=== PATIENT | female | born 1965 | race Two or more races ===

== ENCOUNTER 2025-01-22 12:34 | Outpatient (OUT) | payer OTHER, SELFPAY ==
--- OUTSIDE RECORDS SUMMARY | 2020-03-25 09:30 | XMS_ITS | Continuity of Care Document ---
Author Organization [facility] Address [address] [facility] [place] [address] Phone Care Team Providers Care Furniture Assembler And Installer Name Role Phone Chu Rodriguez Unavailable Unavailable Procedures Procedure Date Covid Testing [facility] Results Test Name Date and Time Measure Units Reference Range Abnormal Flag Status Comments Panel Description: SARS-CoV-2, DAVI Final SARS-CoV-2, DAVI 06:55:00 Not Detected Not Detected Final This test was developed and its performance characteristics determinedby [facility]. This test has not been FDA cleared orapproved. This test has been authorized by FDA under an Emergency UseAuthorization (EUA). This test is only authorized for the duration oftime the declaration that circumstances exist justifying theauthorization of the emergency use of in vitro diagnostic tests fordetection of SARS-CoV-2 virus and/or diagnosis of COVID-19 infectionunder section 564(b)(1) of the Act, 21 U.S.C. 360bbb-3(b)(1), unlessthe authorization is terminated or revoked sooner.When diagnostic testing is negative, the possibility of a falsenegative result should be considered in the context of a patient'srecent exposures and the presence of clinical signs and symptomsconsistent with COVID-19. An individual without symptoms of COVID-19and who is not shedding SARS-CoV-2 virus would expect to have anegative (not detected) result in this assay.Performed by:[facility] ([facility] Panel Description: SARS-CoV-2 Antibody, IgM [facility] SARS-CoV-2 Antibody, IgM Aug-06-2 020 07:19:00 Negative Negative Final This sample do es not contain detectable SARS-CoV-2 IgM antibodies.This negative result does not rule out SARS-CoV-2 infection.Correlatio n with epidemiologic risk factors and other clinical andlaboratory findings is recommended. Serologic results should not beused as the sole basis to diagnose or exclude recent [id number]. Performed by:[email or web address] ([facility]) Panel Description: SARS-CoV-2 Antibody, IgG [facility] SARS-CoV-2 Antibody, IgG 020 04:31:00 Comment Negative Final See [facility] SARS-CoV-2 Ab, IgGPerformed by:[email or web address] ([facility]) Panel Description: [facility] SARS-CoV-2 Ab, IgG Final [facility] SARS-CoV-2 Ab, IgG 020 06:03:00 Negative Negative Final This sample do es not contain detectable SARS-CoV-2 IgG antibodies.This negative result does not rule out SARS-CoV-2 infection.Correlatio n with epidemiologic risk factors and other clinical andlaboratory findings is recommended. Serologic results should not beused as the sole basis to diagnose or exclude recent [id number]. This assay was performed using the [facility](R)SARS-CoV-2 S1/S2 IgG assay.Performed by:[facility] ([facility]) Advance Directives Directive Yes / No Effective Date File Name No Information Encounters Encounter Description Practice Location Reason(s) For Visit Diagnoses Date Provider Providers Copied on Encounter [facility], [address], [place], [id number], [place] tel:[phone] COVID [facility] Encounter for screening for other viral disease Visci DO Chu. [address], [place], [id number], [place]. tel:[phone] Family History Family Member Type Diagnosis Age At Onset No Information Payers Payer name Insurance type Covered republican ID Authoriza tiveronica(s) Medical [facility] [id number] Social History Type Description Quantity Date Captured Comments Alcohol Use Details Unknown Caffeine Use Details Unknown Tobacco Use Status No Information Smoking Status No Information Sex Female Sexual Orientation Straight or heterosexual Gender Identity Female Chief Complaint And Reason For Visit No Information Reason For Referral Reason For Referral No Information History Of Present Illness Encounter Date Complaint History Of Prese nt Illness No Information Functional Status Date Functional Assessmen t No Information Instructions Date Instruction Additional Infor mation No Information Assessments Type Assessment Date assessment Encounter for screening for othe r viral disease Patient Care Teams Name Effective Dates (start - stop) Status Members No Information
--- OUTSIDE RECORDS SUMMARY | 2024-12-18 10:45 | XMS_ITS ---
Author Organization [facility] in [place] Address [address] [place] [address] Care Team Providers Care Marketing Data Specialist Name Role Phone Linus Jeffries DO Primary Care Provider Sam Del Toro Unavailable [phone] Allergies Allergen (clinical drug ingredient) Drug/Non Drug Allergy documented on EMR Reaction Allergy Type Onset Date Status Bee Sting (uncoded) Swelling Allergy Active meperidine Demerol nausea and vomiting Drug Allergy Active Substance with sulfonamide structure and antibacterial mechanism of action (substance) Sulfa Antibiotics rash Drug Allergy Active REASON FOR VISIT Cough/ Self Referred Medications Medication SIG (Take, Route, Frequency, Duration) Notes Start Date End Date Status Fexofenadine HCl 180 MG 1 tablet Swallow whole with water; do not take with fruit juices. Orally Once a day for 30 day(s) 12/18/2024 Active Fluticasone Propionate 50 MCG/ACT 1 spray in each nostril Nasally Twice a day Active Ibuprofen 800 MG Oral for 20 Days Active Propranolol HCl ER 60 MG Take 1 capsule (60 mg) by mouth Daily Oral for 90 Days Active Esomeprazole Magnesium 20 MG 1 capsule 1/2 to 1 hour before morning meal Orally Once a day Active Almotriptan Malate 6.25 MG 1 tablet as n eeded, may take second dose at least 2 hours after first dose up to 2 tablets per day as needed Orally Once a day Active Atorvastatin Calcium 20 MG TAKE 1 TABLET BY MOUTH ONCE DAILY Oral for 30 Days Active Social History Tobacco Use: Social History Observation Description Date Details (start date - stop date) Never Smoker NA - NA Tobacco Control (Standard) Question Answer Notes Tobacco use: Nonsmoker Problems Problem Type SNOMED Code ICD Code Onset Dates Problem Status W/U Status Risk Notes Problem migraine (disorder) (61192956) Migraines (G43.909) Active confirmed Problem HLD (hyperlipidemi a) (E78.5) Active confirmed Vital Signs Weight 226.4 lbs 12/18/2024 Height 62 in 12/18/2024 Blood pressure systolic 140 mm Hg 12/19/19 25 Blood pressure diastolic 87 mm Hg 025 Temperature 97.0 degrees Fahrenheit 12/19/19 25 Heart Rate 73 /min 12/18/2024 Respiratory Rate 18 /min 12/18/2024 BMI 41.4 kg/m2 12/18/2024 Oximetry 98 % 12/18/2024 Procedures Procedure Date Ordered Date Performed Result Body Sit e Spirometry (Pre Only) - Performed 12/18/2024 N/ A Echocardiogram 2D M Mode w/ Doppler (measure RVSP) 12/18/2024 N/A PFT (83158, 35626, 19808) 12/18/2024 N/A Encounters Encounter Location Date Provider Diagnosis [facility] [place] [address] [place] [address] 12/18/2024 Sam Parks Shortness of breath R06.02 ; Chronic cough R05.3 ; Abnormal breath sounds R06.89 ; Lower extremity edema R60.0 and Morbid obesity E66.01 Assessments Encounter Date Diagnosis (ICD Code) Assessment Notes Treatment Notes Treatment Clinical Notes Section Notes 12/18/2024 Shortness of breath (ICD-10 - R06.02) Dyspnea and coughing, manifesting after presumptive COVID-09 July 2024, worsened after hai a second respiratory illness August 2024. No improvement despite saline rinse + Annalee and Nexium. She has also experienced unexplained weight gain and now BLE pitting edema. There are abnormal breath sounds with expiratory wheezing and bibasilar inspiratory crackles, R > L. 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 Office spirometry was performed today, which I reviewed with the patient. It is a mild restrictive pattern with FEV1/FVC 82.6% with FVC 74%. Suspect restriction is secondary in part to weight, but with crackles, I cannot R/O interstitial lung disease, and in addition BLE edema, CHF. Explained that a restrictive lung disease can obscure underlying obstructive lung disease, so it is possible she could have asthma. I made the following recommendations: -Full PFT is necessary to confirm if there is truly restrictive lung disease (need TLC). This can also check for any diffusion impairment and bronchoreversibili ty. -HRCT to evaluate for ILD. There are bibasilar crackles on examination, R > L. This is not normal and can be seen in pulmonary fibrosis or CHF. There is no CXR done, but regardless of the CXR results, I am still going to order a HRCT based on the abnormal breath sounds and ongoing cough of >5 months. -Echocardiogram to evaluate for any cardiac cause for dyspnea, BLE edema, and abnormal breath sounds. Pulmonary edema/effusion could explain the bibasilar crackles, and bronchial edema from CHF can cause wheezes, mimicking obstructive lung disease. -Breztri samples to see if there is any subjective benefit. Cannot R/O obstructive lung disease based on the restrictive pattern on spirometry. She was instructed to use it 2 puffs BID and rinse after use. If she develops adverse effects, she can titrate the dosing according to symptom control. F/U 4 weeks to evaluate response to Breztri and review PFT, echocardiogram, and HRCT. 12/18/2024 Chronic cough (ICD-10 - R05.3) Differential as above: ? ILD/pulmonary fibrosis vs. CHF or cardiomyopathy associated with COVID-19? 12/18/2024 Abnormal breath sounds (ICD-10 - R06.89) Bibasilar inspiratory crackles, R > L; expiratory wheezes. 12/18/2024 Lower extremity edema (ICD-10 - R60.0) Worsening over past several months. Associated with dyspnea/coughing? 12/18/2024 Morbid obesity (ICD-10 - E66.01) Patient has unexplained weight gain. Cannot R/O fluid retention secondary to cardiac disease. Obesity is contributing to restrictive pattern on spirometry. She is trying to lose weight but finds it quite difficult at this time. Plan Of Treatment Treatment Notes Assessment Notes Shortness of breath Dyspnea and coughing, manifesting after presumptive COVID-09 July 2024, worsened after hai a second respiratory illness August 2024. No improvement despite saline rinse + Annalee and Nexium. She has also experienced unexplained weight gain and now BLE pitting edema. There are abnormal breath sounds with expiratory wheezing and bibasilar inspiratory crackles, R > L. 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 Office spirometry was performed today, which I reviewed with the patient. It is a mild restrictive pattern with FEV1/FVC 82.6% with FVC 74%. Suspect restriction is secondary in part to weight, but with crackles, I cannot R/O interstitial lung disease, and in addition BLE edema, CHF. Explained that a restrictive lung disease can obscure underlying obstructive lung disease, so it is possible she could have asthma. I made the following recommendations: -Full PFT is necessary to confirm if there is truly restrictive lung disease (need TLC). This can also check for any diffusion impairment and bronchoreversibility. -HRCT to evaluate for ILD. There are bibasilar crackles on examination, R > L. This is not normal and can be seen in pulmonary fibrosis or CHF. There is no CXR done, but regardless of the CXR results, I am still going to order a HRCT based on the abnormal breath sounds and ongoing cough of >5 months. -Echocardiogram to evaluate for any cardiac cause for dyspnea, BLE edema, and abnormal breath sounds. Pulmonary edema/effusion could explain the bibasilar crackles, and bronchial edema from CHF can cause wheezes, mimicking obstructive lung disease. -Breztri samples to see if there is any subjective benefit. Cannot R/O obstructive lung disease based on the restrictive pattern on spirometry. She was instructed to use it 2 puffs BID and rinse after use. If she develops adverse effects, she can titrate the dosing according to symptom control. F/U 4 weeks to evaluate response to Breztri and review PFT, echocardiogram, and HRCT. Chronic cough Differential as above: ? ILD/pulmonary fibrosis vs. CHF or cardiomyopathy associated with COVID-19? Abnormal breath sounds Bibasilar inspiratory crackles, R > L; expiratory wheezes. Lower extremity edema Worsening over past several months. Associated with dyspnea/coughing? Morbid obesity Patient has unexplained weight gain. Cannot R/O fluid retention secondary to cardiac disease. Obesity is contributing to restrictive pattern on spirometry. She is trying to lose weight but finds it quite difficult at this time. Pending Test Test Name Order Date Spirometry (Pre Only) - Performed 2024 Echocardiogram 2D M Mode w/ Doppler (manuela sure RVSP) 12/18/2024 CT Chest High Resolution 12/18/2024 PFT (24288, 23155, 83046) 12/18/2024 Next Appt Details Follow Up: 4 Weeks, Reason: Cough, SOB - testing Provider Name:Sam Parks, 01/29/2025 03:40:00 PM, [address] [place], [address], Progress Notes * Margie ALTMAN LDOB:1965 (59 yo F)Acc No.[id number]:12/18/2024 New Patient Patient: Margie RIGGS Provider: Niki Parks DO :1965 A ge:59 Y S ex:Female Date:12/18/2024 Address:[address] [place] [address] , [facility] Pcp:Linus Jeffries, DO Check In:02:30 PM ESTCheck O ut:03:20 PM EST Subjective: * Chief Complaints: * C ough/ Self Referred * HPI: G eneral: NEW PATIENT 59yo female, whom I know outside the office, presents with a chronic cough and dyspnea. She has no know history of asthma, lifelong non-smoker. Symptoms began June 2024 after hai presumptive COVID-19. She was beginning to improve, but then contracted another respiratory infection August 2024, from which she has never recovered. Coughing can occur throughout the day and it is occasionally productive without hemoptysis. She is complaining of dyspnea on exertion. She is in a show choir - she has more difficulty with singing and breath holds. It is beginning to affect her activities and is causing her to become depressed. She has tried Nexium and saline rinse + Annalee with limited benefit. She has not tried any inhaled therapy. There has been no w/up for these symptoms prior to this visit. During this time, she has noticed unexplained weight gain and has developed pitting lower extremity edema.? She is on propranolol for migraines - she has been on the 60mg dose for years. MA Intake Comments:. Patient presents for a Cough since June 2024. Patient complains of wheezing, chest tightness & SOB. Patient is not currently taking any inhalers at this time. Patient reports excessive mucus. Patient reports having Covid-19 in January but was sick in June with a non-negative Covid-19 result. Patient reports also being sick in August 2024 with a horrible cough. Patient is a non-smoker. Patient has never seen Pulmonary in the past. * ROS: G eneral/Constitutional: Fever or sweats d enies. C hange of appetite d enies. C hills d enies. W eight Change d enies. H EENT: Dry mouth d enies. S ore throat d enies. O ral Ulcers d enies. P ost Nasal Drip m ild, treated with Annalee and saline rinses. C ongestion D enies. H oarseness D enies. C ardiovascular: Tachycardia d enies. E faith D enies. C hest pain d enies. P alpitations d enies. R espiratory: Chest tightness d enies. P leurisy D enies. D yspnea w ith singing and exertion/activity. C ough d aily cough, occasionally productive. H emoptysis d enies. W heezing d enies. G astrointestinal: Acid Reflux/GERD/Heartburn t reated with Nexium. D ysphagia d enies. M usculoskeletal: Arthralgias/joint pain D enies. S kin: Easy bruising d enies. R nixon d enies. ? N eurologic: Seizures d enies. T remor d enies. H ematology: Abnormal Bleeding d enies. P sychiatric: Anxiety d enies. * Active Problem List E78.5 HLD (hyperlipidemia) Modified On:12/18/2024W/U Status:confirmed G43.909 Migraines Modified On:12/18/2024/U Status:confirmed * Medical History: * Surgical History: o opherectomy-left oral surgery pilonidal cyst excision diagnostic laparoscopy * Hospitalization/Major Diagno stic Procedure: D enies Past Hospitalization * Family History: F ather: diagnosed with Unspecified essential hypertension. P aternal Grandfather: diagnosed with Diabetes mellitus without mention of complication, type II or unspecified type, not stated as uncontrolled, Unspecified heart disease. P aternal Grandmother: diagnosed with Unspecified heart disease. M aternal Grandfather: diagnosed with Unspecified heart disease. M aternal Grandmother: diagnosed with Unspecified heart disease. * Social History: T obacco Use: T obacco Control (Standard) T obacco use: N onsmoker Electronic Cigarette use C urrent user N o M iscellaneous: O ccupation O ccupation: W linda full-time Physician Pets: none. D rugs/Alcohol: D rugs H ave you used drugs other than those for medical reasons in the past 12 months? N o D oes the Patient have a History of Drug Abuse in the Past? N o Caffeine I ntake: 1 -2 cups per day Coffee Do you drink alcohol?: Yes, Socially. Do you smoke marijuana?: Denies. * Medications: T akingAlmotriptan Malate 6.25 MG Tablet 1 tablet as needed, may take second dose at least 2 hours after first dose up to 2 tablets per day as needed Orally Once a day Atorvastatin Calcium 20 MG Tablet TAKE 1 TABLET BY MOUTH ONCE DAILY Oral Esomeprazole Magnesium 20 MG Capsule Delayed Release 1 capsule 1/2 to 1 hour before morning meal Orally Once a day Fexofenadine HCl 180 MG Tablet 1 tablet Swallow whole with water; do not take with fruit juices. Orally Once a day Fluticasone Propionate 50 MCG/ACT Suspension 1 spray in each nostril Nasally Twice a day Ibuprofen 800 MG Tablet Oral Propranolol HCl ER 60 MG Capsule Extended Release 24 Hour Take 1 capsule (60 mg) by mouth Daily Oral Medication List reviewed and reconciled with the patientTaking Almotriptan Malate 6.25 MG Tablet 1 tablet as needed, may take second dose at least 2 hours after first dose up to 2 tablets per day as needed Orally Once a day Taking Atorvastatin Calcium 20 MG Tablet TAKE 1 TABLET BY MOUTH ONCE DAILY Oral Taking Esomeprazole Magnesium 20 MG Capsule Delayed Release 1 capsule 1/2 to 1 hour before morning meal Orally Once a day Taking Fexofenadine HCl 180 MG Tablet 1 tablet Swallow whole with water; do not take with fruit juices. Orally Once a day Taking Fluticasone Propionate 50 MCG/ACT Suspension 1 spray in each nostril Nasally Twice a day Taking Ibuprofen 800 MG Tablet Oral Taking Propranolol HCl ER 60 MG Capsule Extended Release 24 Hour Take 1 capsule (60 mg) by mouth Daily Oral Medication List reviewed and reconciled with the patient * Allergies: D emerol: nausea and vomiting - AllergySulfa Antibiotics: rash - AllergyBee Sting: Swelling - Allergy Objective: * Vitals: W t:226.4lbs, Ht:62in, BP:sittin/87mm Hg, Temp:Forehead:97.0F, HR:73/min, RR:18/min, BMI:41.4Index, Oxygen sat %:Room Air:98%, Ht-cm: 157.48 cm, Wt-k.69 kg. * Examination: E xam: GENERAL APPEARANCE: A ppears stated age. Skin N ormal. Mouth P ink and moist. No candidiasis. Oropharynx M allampati Class I. No postnasal drip.? Trachea M idline. Chest N ormal. Respiratory Normal M ovements, E ffort N ormal. Auscultation D iminished breath sounds. Faint bibasilar crackles R > L. Mild expiratory wheeze with forced exhalation. Cardiac R egular rate and rhythm. Gastrointestinal M ildly increased central adiposity. Vascular 1 + pitting edema lower extremities/ankles. Musculoskeletal N ormal posture. Neurological F ocal, intact. Psychiatric A lert and oriented x3. Sad when talking about how symptoms are affecting her singing. Mentation/Cognition N ormal. Assessment: * Assessment: 1. S hortness of breath - R06.02 (Primary) 2 . C hronic cough - R05.3 ? 3 . A bnormal breath sounds - R06.89 4 . L ower extremity edema - R60.0 5 . M orbid obesity - E66.01 Plan: * Treatment: 2. C hronic cough I maging: CT Chest High Resolution P rocedure: PFT (59239, 57184, 51662) Notes: Differential as above: ? ILD/pulmonary fibrosis vs. CHF or cardiomyopathy associated with COVID-19?? 3. A bnormal breath sounds I maging: CT Chest High Resolution Notes: Bibasilar inspiratory crackles, R > L; expiratory wheezes. 4. L ower extremity edema P rocedure: Echocardiogram 2D M Mode w/ Doppler (measure RVSP) Notes: Worsening over past several months. Associated with dyspnea/coughing? 5. M orbid obesity Notes: Patient has unexplained weight gain. Cannot R/O fluid retention secondary to cardiac disease. Obesity is contributing to restrictive pattern on spirometry. She is trying to lose weight but finds it quite difficult at this time. * Procedure Codes: 9 4010 P.F. BEFORE BD (SCREEN) * Preventive Medicine: COVID Vaccination: H as patient had COVID Vaccination? COVID Vaccination Y es 2021 per patient Immunization Status: I nfluenza U TD per patient. Screenings/Counseling: F ALL RISK SCREENING Fall Risk Assessment: N o falls in the past year Are you afraid of falling? N o T OBACCO ACTION PLAN Exclusion: M edical Reason Non Smoker Type of Medical Reason: N ot indicated B HI ACTION PLAN Above Normal BMI Follow-up D ietary management education, guidance, and counseling * Follow Up: 4 Weeks (Reason: Cough, SOB - testing) * * Sign off status: Completed Visit Status: C HK (Check Out) true * Provider: Niki Parks DO Date: 12/18/2024 Generated for Roderick devlin/Gisselle/Akbaritting on: 0 01/22/2025 12:44 PM EDT History and Physical Notes * HPI (History of Present Illness) Category Sub-Category Detail Notes Category Not es General Patient present s for a Cough since June 2024. Patient complains of wheezing, chest tightness & SOB. Patient is not currently taking any inhalers at this time. Patient reports excessive mucus. Patient reports having Covid-19 in January but was sick in June with a non-negative Covid-19 result. Patient reports also being sick in August 2024 with a horrible cough. Patient is a non-smoker. Patient has never seen Pulmonary in the past. Examination Category Sub-Category Detail Notes Category Not es Exam GENERAL APPEARANCE: Appears stated age Skin Normal Mouth Hamill and moist. No c andidiasis Trachea Midline Chest Normal Respiratory Normal Movements, Ef fort Normal Auscultation Diminished breath so unds. Faint bibasilar crackles R > L. Mild expiratory wheeze with forced exhalation Cardiac Regular rate and rhy thm Gastrointestinal Mildly increased rachel tral adiposity Vascular 1+ pitting edema low er extremities/ankles Musculoskeletal Normal posture Neurological Focal, intact Psychiatric Alert and oriented x 3. Sad when talking about how symptoms are affecting her singing Mentation/Cognition Normal Oropharynx Mallampati Class I. No postnasal drip
--- OUTSIDE RECORDS SUMMARY | 2025-01-08 11:12 | XMS_ITS ---
Author Organization [facility] in [place] Address [address] [place] [address] Care Team Providers Care Collarette Separator Name Role Phone Linus Jeffries DO Primary Care Provider Unavaila татьяна CharlySam Unavailable [phone] REASON FOR VISIT Appt. Reschedule/Testing Encounters Encounter Location Date Provider Diagnosis Pulmonary Medicine [place] [address] [place] [address] 01/08/2025 Sam Parks Plan Of Treatment Next Appt Details Provider Name:Sam Richi, 01/29/2025 03:40:00 PM, [address] [place], [address], Progress Notes * Margie ALTMAN LDOB:1965 (59 yo F)Acc No.[id number]:01/08/2025 Patient: Margie RIGGS :1965 A ge:59 Y S ex:Female Address:[address] [place], [address] * true * Date: Generated for Printi ng/Faxing/eTransmitting on: 0 01/22/2025 12:43 PM EDT
--- OUTSIDE RECORDS SUMMARY | 2025-01-08 15:00 | XMS_ITS | Encounter Summary ---
Author Organization [facility] Address [address] [place] [address] Care Team Providers Care Basket Braider Name Role Phone Linus Jeffries DO Primary Care Provider [phone] Encounter Details Date Type Department Care Team (Latest Contact Info) Description 01/08/2025 3:00 PM EDT Office Visit [facility] [address] [place] [address] Linus Jeffries DO [address] [place] [address] Persistent cough (Primary Dx); Morbid (severe) obesity due to excess calories (CMS/HCC); Hyperlipidemia, unspecified (CMS/HCC); Mixed hyperlipidemia (CMS/HCC); Other fatigue; Bilateral lower extremity edema; Dyspnea on exertion; Elevated blood sugar Social History Tobacco Use Types Packs/Day Years Used Date Smoking Tobacco: Never Smokeless Tobacco: Never Alcohol Use Standard Drinks/Week Comments Yes 5 (1 standard drink = 0.6 oz pur e alcohol) B1300 Health Literacy Answer Date Recor ded How often do you need to hav e someone help you when you read instructions, pamphlets, or other written material from your doctor or pharmacy? Never 02/27/2024 Social Connection and Isolat ion Panel [NHANES] Answer Date Recorded In a typical week, how many times do you talk on the phone with family, friends, or neighbors? More than three times a week 02/27/2024 How often do you get togethe r with friends or relatives? More than three times a week 02/27/2024 How often do you attend chur ch or mormon services? 1 to 4 times per year 02/27/2024 Do you belong to any clubs o r organizations such as amish groups, unions, fraternal or athletic groups, or school groups? Yes 02/27/2024 How often do you attend meet ings of the clubs or organizations you belong to? More than 4 times per year 02/27/2024 Are you , , di vorced, , never , or living with a partner? 02/27/2024 AUDIT-C Answer Date Recorded Q1: How often do you have a drink containing alc ohol? 2-3 times a week 02/27/2024 Q2: How many drinks containi ng alcohol do you have on a typical day when you are drinking? 3 or 4 02/27/2024 Q3: How often do you have si x or more drinks on one occasion? Never 02/27/2024 Overall Financial Resource Strain (CARDIA) Answe r Date Recorded How hard is it for you to pa y for the very basics like food, housing, medical care, and heating? Not hard at all 02/27/2024 PHQ-2 Answer Date Recorded Patient Health Questionnaire-2 Score 0 01/08/2025 [facility] - Occupational Stress Questionnaire Answer Date Recorded Do you feel stress - tense, restless, nervous, or anxious, or unable to sleep at night because your mind is troubled all the time - these days? Only a little 02/27/2024 Exercise Vital Sign Answer Date Recorde d On average, how many days pe r week do you engage in moderate to strenuous exercise (like a brisk walk)? 1 day 02/27/2024 On average, how many minutes do you engage in exercise at this level? 10 min 02/27/2024 Hunger Vital Sign Answer Date Recorded Within the past 12 months, y ou worried that your food would run out before you got the money to buy more. Never true 02/27/20 24 Within the past 12 months, t he food you bought just didn't last and you didn't have money to get more. Never true 02/27/2024 PRAPARE - Transportation Answer Date Re corded In the past 12 months, has l ack of transportation kept you from medical appointments or from getting medications? No 04/2024 In the past 12 months, has l ack of transportation kept you from meetings, work, or from getting things needed for daily living? No 02/27/2024 Housing Stability Vital Sign Answer Ritchie e Recorded In the last 12 months, was t here a time when you were not able to pay the mortgage or rent on time? No 02/27/2024 In the past 12 months, how m any times have you moved where you were living? 0 02/27/2024 At any time in the past 12 m [facility], were you homeless or living in a residential (including now)? No 02/27/2024 Comments No Sex and Gender Information Value Date Recorded Sex Assigned at Not on file Legal Sex Female 6:58 PM EDT Gender Identity Not on file Sexual Orientation Not on file documented as of this encounter Last Filed Vital Signs Vital Sign Reading Time Taken Comments Blood Pressure 118/86 01/08/2025 2:45 PM EDT Pulse 65 01/08/2025 2:45 PM EDT Temperature 36.1 C (96.9 F) 01/08/2025 2:45 PM EDT Respiratory Rate - - Oxygen Saturation 98% 01/08/2025 2:45 PM EDT Inhaled Oxygen Concentration - - Weight 101 kg (223 lb) 01/08/2025 2:45 PM EDT Height - - Body Mass Index 40.79 09/04/2024 2:23 PM EST documented in this encounter Functional Status * Over the past 2 weeks, how often have you been bothered by any of the following problems? Question Answer Date of Assessment Author Little interest or pleasure in doing things Not at all 01/08/2025 2:57 PM EDT Fidel Rubin LPN Feeling down, depressed, or hopeless Not at all 01/08/2025 2:57 PM EDT Fidel Rubin LPN Patient Health Questionnaire-2 Score 0 01/08/2025 2:57 PM EDT Aaron Rubin LPN documented as of this encounter Progress Notes * Linus Jeffries DO - 01/08/2025 3:00 PM EDT Images from the original note were not included. SUBJECTIVE: Margie Diaz is a 59 y.o. female presents with chief complaint of Edema, Hyperlipidemia. Pt presents to the office for routine OV, due for labs. Also has complaints of edema. Pt states symptoms began after illness that occurred in June (tested positive for covid at 30 minute) and August. Pt states in August was not tested for anything but cough was persistent and also had wheezing. Pt now notes sob with little exertion, raspiness of voice that is intermittent. Seen Dr. Parks, who started the pt on Breztri with relief of the cough. CT chest was ordered (waiting on insurance), Echo (scheduled), and PFT's (scheduled). Pt states she feels tired and just overall does not feel well. Subjective Margie Diaz is a 59 y.o. female who presents for evaluation of edema in both ankles and feet. Theedema has been moderate. Onset of symptoms was 2 month ago, and patient reports symptoms have gradually worsened since that time. The edema is present all day. The patient states the problem is new. Has ordered compression stockings to see if would give any relief. Hyperlipidemia This is a chronic problem. The current episode started more than 1 month ago. The problem is controlled. Review of Systems: Review of Systems Problem List: Patient Active Problem List Diagnosis Acute left lumbar radiculopathy Atypical migraine (CMS/HCC) Hyperlipidemia (CMS/HCC) Past Medical History: Past Medical History: Diagnosis Date Arthritis May 2023 H/O laparoscopy 1987 Hand fracture, right 1975 Migraine headache (CMS/HCC) Obesity 2014 Restless leg Tear of meniscus of knee 05/2023 Family History: Family History Problem Relation Name Age of Onset Osteoporosis Mother Latonya Caldwell Prostate cancer Father Satya Caldwell Cancer Father Satya Caldwell Hypertension Father Satya Caldwell Colon cancer Maternal Grandmother [place] - colon ca Cancer Maternal Grandmother [place] - colon ca Cancer Maternal Grandfather Naun - leukemia Alcohol abuse Paternal Grandmother [place] Diabetes Paternal Grandmother Masha Allergies: Allergies Allergen Reactions Bee Pollen Swelling Meperidine GI intolerance Sulfa Antibiotics Rash Surgical History: Past Surgical History: Procedure Laterality Date OOPHORECTOMY Left 2011 OTHER SURGICAL HISTORY RSO OVARY SURGERY Left 2010 lap/drainage of ovarian cyst PILONIDAL CYST DRAINAGE 1988 WISDOM TOOTH EXTRACTION 1981 Social History: Social Drivers of Health Tobacco Use: Low Risk (02/28/2024) Patient History Smoking Tobacco Use: Never Smokeless Tobacco Use: Never Passive Exposure: Not on file Alcohol Use: Alcohol Misuse (02/27/2024) AUDIT-C Frequency of Alcohol Consumption: 2-3 times a week Average Number of Drinks: 3 or 4 Frequency of Binge Drinking: Never Financial Resource Strain: Low Risk (02/27/2024) Overall Financial Resource Strain (CARDIA) Difficulty of Paying Living Expenses: Not hard at all Food Insecurity: No Food Insecurity (02/27/2024) Hunger Vital Sign Worried About Running Out of Food in the Last Year: Never true Ran Out of Food in the Last Year: Never true Transportation Needs: No Transportation Needs (02/27/2024) PRAPARE - Transportation Lack of Transportation (Medical): No Lack of Transportation (Non-Medical): No Physical Activity: Insufficiently Active (02/27/2024) Exercise Vital Sign Days of Exercise per Week: 1 day Minutes of Exercise per Session: 10 min Stress: No Stress Concern Present (02/27/2024) [facility] - Occupational Stress Questionnaire Feeling of Stress : Only a little Social Connections: Socially Integrated (02/27/2024) Social Connection and Isolation Panel [NHANES] Frequency of Communication with Friends and Family: More than three times a week Frequency of Social Gatherings with Friends and Family: More than three times a week Attends Cheondoism Services: 1 to 4 times per year Active Member of Clubs or Organizations: Yes Attends Club or Organization Meetings: More than 4 times per year Marital Status: Intimate Partner Violence: Not on file Depression: Not at risk (02/28/2024) PHQ-2 PHQ-2 Score: 0 Housing Stability: Low Risk (02/27/2024) Housing Stability Vital Sign Unable to Pay for Housing in the Last Year: No Number of Times Moved in the Last Year: 0 Homeless in the Last Year: No Health Literacy: Adequate Health Literacy (02/27/2024) B1300 Health Literacy Frequency of need for help with medical instructions: Never OBJECTIVE: Visit Vitals OB Status Postmenopausal Smoking Status Never Physical Exam Constitutional: Appearance: Normal appearance. She is obese. HENT: Head: Normocephalic and atraumatic. Eyes: Extraocular Movements: Extraocular movements intact. Conjunctiva/sclera: Conjunctivae normal. Pupils: Pupils are equal, round, and reactive to light. Cardiovascular: Rate and Rhythm: Normal rate and regular rhythm. Pulmonary: Effort: Pulmonary effort is normal. Breath sounds: Normal breath sounds. Abdominal: General: Bowel sounds are normal. Palpations: Abdomen is soft. Musculoskeletal: General: Normal range of motion. Right lower leg: Edema present. Left lower leg: Edema present. Skin: General: Skin is warm and dry. Neurological: General: No focal deficit present. Mental Status: She is alert and oriented to person, place, and time. Psychiatric: Mood and Affect: Mood normal. Thought Content: Thought content normal. Judgment: Judgment normal. No results found for this or any previous visit (from the past 4 weeks). ASSESSMENT AND PLAN: Assessment/Plan Diagnoses and all orders for this visit: Mixed hyperlipidemia (CMS/HCC) Labs ordered today, will follow up when results available - Comprehensive metabolic panel; Future - CBC and differential; Future Morbid (severe) obesity due to excess calories (CMS/HCC) - Comprehensive metabolic panel; Future - CBC and differential; Future Hyperlipidemia, unspecified (CMS/HCC) - Comprehensive metabolic panel; Future - CBC and differential; Future - Lipid panel; Future Persistent cough Patient advised to return if symptoms worsen and/or persist despite treatment. Complicated recent history with multiple acute illenss. Discussed long differential list with pt and will initiate broadwork up including labs and imaging. Rec fu with pulmonology as scheduled - albuterol HFA 90 mcg/act inhaler; Inhale 2 puffs every 4 (four) hours if needed for wheezing - XR chest 2 views; Future - Comprehensive metabolic panel; Future - CBC and differential; Future - Sedimentation rate, automated; Future - D-dimer, quantitative; Future - methylPREDNISolone (Medrol Dospak) 4 MG tablets; Follow schedule on package instructions Other fatigue - Comprehensive metabolic panel; Future - CBC and differential; Future - Sedimentation rate, automated; Future - TSH; Future - D-dimer, quantitative; Future Bilateral lower extremity edema Labs ordered today, will follow up when results available - Comprehensive metabolic panel; Future - CBC and differential; Future - Sedimentation rate, automated; Future - D-dimer, quantitative; Future - B-type natriuretic peptide; Future Dyspnea on exertion - albuterol HFA 90 mcg/act inhaler; Inhale 2 puffs every 4 (four) hours if needed for wheezing - Comprehensive metabolic panel; Future - CBC and differential; Future - Sedimentation rate, automated; Future - D-dimer, quantitative; Future - B-type natriuretic peptide; Future - methylPREDNISolone (Medrol Dospak) 4 MG tablets; Follow schedule on package instructions Elevated blood sugar - Hemoglobin A1c; Future Updated Medications: I have reviewed and reconciled the history and medication list with the patient today. Current Outpatient Medications: Acfcozx-Iegjgfikucq-Llxfbgadmg (Breztri Aerosphere) 160-9-4.8 MCG/ACT aerosol, Inhale 2 puffs in the morning and 2 puffs before bedtime., Disp: , Rfl: esomeprazole (NexIUM) [address] capsule, 1 (one) time each day at the same time 1 capsule 1/2 to 1 hour before morning meal Orally Once a day, Disp: , Rfl: fexofenadine (Annalee) 180 MG tablet, Take 180 mg by mouth 1 (one) time each day at the same time, Disp: , Rfl: almotriptan (Axert) 6.25 MG tablet, Take 6.25 mg by mouth 1 tablet as needed, may take second dose at least 2 hours after first dose up to 2 tablets per day as needed Orally Once a day, Disp: , Rfl: atorvastatin (Lipitor) 20 MG tablet, TAKE 1 TABLET BY MOUTH EVERY DAY, Disp: 30 tablet, Rfl: 5 cholecalciferol (Vitamin D-3) 50 MCG (2000 UT) tablet, 1 (one) time each day at the same time., Disp: , Rfl: fluticasone (Flonase) 50 MCG/ACT nasal spray, Administer 1 spray into each nostril in the morning and 1 spray before bedtime., Disp: , Rfl: ibuprofen 800 MG tablet, Take 1 tablet (800 mg) by mouth every 8 (eight) hours if needed for mild pain, Disp: 60 tablet, Rfl: 1 Multiple Vitamin (Multi Vitamin) tablet, 1 (one) time each day at the same time., Disp: , Rfl: propranolol LA (Inderal LA) 60 MG 24 hr capsule, Take 1 capsule (60 mg) by mouth Daily, Disp: 90 capsule, Rfl: 3 documented in this encounter Plan of Treatment Not on file documented as of this encounter Procedures Procedure Name Priority Date/Time Associated Diagnosis Comments SED RATE BY MODIFIED WESTERGREN Routine 01/09/2025 7:52 AM EDT Persistent cough Other fatigue Bilateral lower extremity edema Dyspnea on exertion D-DIMER, QUANTITATIVE Routine 01/09/2025 7:52 AM EDT Persistent cough Other fatigue Bilateral lower extremity edema Dyspnea on exertion CBC (INCLUDES DIFF/PLT) Routine 01/09/2025 7:52 AM EDT Morbid (severe) obesity due to excess calories (CMS/HCC) Hyperlipidemia, unspecified (CMS/HCC) Mixed hyperlipidemia (CMS/HCC) Persistent cough Other fatigue Bilateral lower extremity edema Dyspnea on exertion TSH Routine 01/09/2025 7:52 AM EDT Other fatigue B-TYPE NATRIURETIC PEPTIDE Routine 01/09/2025 7:52 AM EDT Bilateral lower extremity edema Dyspnea on exertion HEMOGLOBIN A1C Routine 01/09/2025 7:52 AM EDT Elevated blood sugar LIPID PANEL Routine 01/09/2025 7:52 AM EDT Hyperlipidemia, unspecified (CMS/HCC) COMPREHENSIVE METABOLIC PANEL Routine 01/09/2025 7:52 AM EDT Morbid (severe) obesity due to excess calories (CMS/HCC) Hyperlipidemia, unspecified (CMS/HCC) Mixed hyperlipidemia (CMS/HCC) Persistent cough Other fatigue Bilateral lower extremity edema Dyspnea on exertion documented in this encounter Results * B-type natriuretic peptide (01/09/2025 7:52 AM EDT) B TYPE NATRIURETIC PEPTIDE (BNP) 17.7 0.0 - 100.0 pg/mL [facility] Comment:[employer] methodology Blood Venous blood specimen / Unknown 01/09/2025 7:52 AM EDT 01/09/2025 Narrative [facility] - 01/10/2025 11:07 AM EDT Performed at: [facility] [id number] [employer] Sanding Machine Operator: Adalid Abreu PhD, Phone: [phone] Linus Jeffries DO LAB BLOOD ORDERABLES Final Re sult Performing Organization Address City/[facility]/ZIP Co de Phone Number [facility] * D-dimer, quantitative (01/09/2025 7:52 AM EDT) D-DIMER, QUANTITATIVE <0.20 0.00 - 0.49 mg/L FEU [facility] Comment: According to the assay transportation aid's published package insert, a normal (<0.50 mg/L FEU) D-dimer result in conjunction with a non-high clinical probability assessment, excludes deep vein thrombosis (DVT) and pulmonary embolism (PE) with high sensitivity. D-dimer values increase with age and this can make VTE exclusion of an older population difficult. To address this, the [employer], based on best available evidence and recent guidelines, recommends that clinicians use age-adjusted D-dimer thresholds in patients greater than 50 years of age with: a) a low probability of PE who do not meet all Pulmonary Embolism Rule Out Criteria, or b) in those with intermediate probability of PE. The formula for an age-adjusted D-dimer cut-off is age/100 . For example, a 60 year old patient would have an age-adjusted cut-off of 0.60 mg/L FEU and an 80 year old 0.80 mg/L FEU. Blood Venous blood specimen / Unknown 01/09/2025 7:52 AM EDT 01/09/2025 Narrative [facility] - 01/10/2025 11:07 AM EDT Performed at: 01 - [address] [id number] [employer] Operator: Adalid Abreu PhD, Phone: [phone] Linus Jeffries DO LAB BLOOD ORDERABLES Final Re sult Performing Organization Address [facility] Co de Phone Number [facility] * (ABNORMAL) Lipid panel (01/09/2025 7:52 AM EDT) Cholesterol, Total 181 100 - 199 mg/dL [facility] Triglycerides 127 0 - 149 mg/dL [facility] HDL Cholesterol 59 >39 mg/dL [facility] VLDL Cholesterol [place] 22 5 - 40 mg/dL [facility] LDL Chol Calc (NIH) 100(H) 0 - 99 mg/dL [facility] Blood Venous blood specimen / Unknown 01/09/2025 7:52 AM EDT 01/09/2025 Narrative [facility] - 01/10/2025 11:07 AM EDT Performed at: [address] [place] [id number] [employer] Machine Operator: Adalid Abreu PhD, Phone: [phone] Linus Jeffries LAB BLOOD ORDERABLES Final Re sult Performing Organization Address City/[facility] Co de Phone Number [facility] * TSH (01/09/2025 7:52 AM EDT) TSH 2.180 0.450 - 4.500 uIU/mL [facility] Blood Venous blood specimen / Unknown 01/09/2025 7:52 AM EDT 01/09/2025 Narrative [facility] - 01/10/2025 11:07 AM EDT Performed at: [address] [id number] [employer] Operator: Adalid Abreu PhD, Phone: [phone] Linus Jeffries DO LAB BLOOD ORDERABLES Final Re sult Performing Organization Address City/[facility] Co de Phone Number [facility] * Sedimentation rate, automated (01/09/2025 7:52 AM EDT) Sed Rate-Westergren 2 0 - 40 mm/hr [facility] Blood Venous blood specimen / Unknown 01/09/2025 7:52 AM EDT 01/09/2025 Narrative [facility] - 01/10/2025 11:07 AM EDT Performed at: [address] [place] [id number] [employer] Operator: Adalid Abreu PhD, Phone: [phone] Linus Jeffries DO LAB BLOOD ORDERABLES Final Re sult [facility] * (ABNORMAL) Hemoglobin A1c (01/09/2025 7:52 AM EDT) Pathologist [facility] HgbA1C 5.9(H) 4.8 - 5.6 % [facility] Comment: Prediabetes: 5.7 - 6.4 Diabetes: >6.4 Glycemic control for adults with diabetes: <7.0 Blood Venous blood specimen / Unknown 01/09/2025 7:52 AM EDT 01/09/2025 Narrative [facility] - 01/10/2025 11:07 AM EDT Performed at: 01 - [place] [id number] [employer] Operator: Adalid Abreu PhD, Phone: [phone] Linus Jeffries DO LAB BLOOD ORDERABLES Final Re sult Performing Organization Address [facility]/ZIP Co de Phone Number [facility] * (ABNORMAL) CBC and differential (01/09/2025 7:52 AM EDT) [facility] WBC 8.9 3.4 - 10.8 x10E3/uL [facility] RBC 4.75 3.77 - 5.28 x10E6/uL [facility] Hgb 14.9 11.1 - 15.9 g/dL [facility] Hct 44.7 34.0 - 46.6 % [facility] MCV 94 79 - 97 fL [facility] MCH 31.4 26.6 - 33.0 pg [facility] MCHC 33.3 31.5 - 35.7 g/dL [facility] RDW 12.5 11.7 - 15.4 % [facility] Platelets 287 150 - 450 x10E3/uL [facility] Neutrophils 45 Not Estab. % [facility] Lymphs 36 Not Estab. % [facility] Monocytes 13 Not Estab. % [facility] Eos 5 Not Estab. % [facility] Basos 1 Not Estab. % [facility] Neutrophils Abs 4.1 1.4 - 7.0 x10E3/uL [facility] Lymphs Abs 3.2(H) 0.7 - 3.1 x10E3/uL [facility] MonocytesAbs 1.2(H) 0.1 - 0.9 x10E3/uL [facility] Eos Abs 0.4 0.0 - 0.4 x10E3/uL [facility] Baso Abs 0.1 0.0 - 0.2 x10E3/uL [facility] Immature Granulocytes 0 Not Estab. % [facility] Immature Grans Abs 0.0 0.0 - 0.1 x10E3/uL [facility] Blood Venous blood specimen / Unknown 01/09/2025 7:52 AM EDT 01/09/2025 Narrative [facility] - 01/10/2025 11:07 AM EDT Performed at: 01 - [address] [id number] [employer] Operator: Adalid Abreu PhD, Phone: [phone] Linus Jeffries DO LAB BLOOD ORDERABLES Final Re sult [facility] * (ABNORMAL) Comprehensive metabolic panel (01/09/2025 7:52 AM EDT) Glucose 114(H) 70 - 99 mg/dL [facility] BUN 17 8 - 27 mg/dL [facility] Creat 0.84 0.57 - 1.00 mg/dL [facility] EGFR 80 >59 mL/min/1.7 3 [facility] BUN/Creat Ratio 20 12 - 28 [facility] Sodium 144 134 - 144 mmol/L [facility] Potassium 4.5 3.5 - 5.2 mmol/L [facility] Chloride 104 96 - 106 mmol/L [facility] Carbon Dioxide 24 20 - 29 mmol/L [facility] Calcium 9.8 8.7 - 10.3 mg/dL [facility] Protein Total 6.9 6.0 - 8.5 g/dL [facility] Albumin 4.3 3.8 - 4.9 g/dL [facility] Globulin Total 2.6 1.5 - 4.5 g/dL [facility] Bili Total 0.4 0.0 - 1.2 mg/dL [facility] Alk Phosphatase 112 44 - 121 IU/L [facility] AST 43(H) 0 - 40 IU/L [facility] ALT 43(H) 0 - 32 IU/L [facility] Blood Venous blood specimen / Unknown 01/09/2025 7:52 AM EDT 01/09/2025 Narrative [facility] - 01/10/2025 11:07 AM EDT Performed at: 01 - [facility] [id number] [employer] Operator: Adalid Abreu PhD, Phone: [phone] Linus Jeffries DO LAB BLOOD ORDERABLES Final Re sult [facility] * XR chest 2 views (01/08/2025 3:46 PM EDT) Anatomical Region Laterality Modality Chest Radiographic Maria C ging 01/08/2025 6:24 PM EDT Narrative 01/08/2025 6:24 PM EDT Exam: XR CHEST 2 VIEWS Reason for exam: Cough, wheezing Prior comparative studies: None Findings: Lungs are well expanded and appear clear. Heart and mediastinum are unremarkable. Pleural space is clear. IMPRESSION: 1. No acute abnormality identified. Dictated on: 01/08/2025 4:13 PM This report has been electronically signed and approved by the interpreting radiologist. Procedure Note Jesús Durand MD - 01/08/2025 Exam: XR CHEST 2 VIEWS Reason for exam: Cough, wheezing Prior comparative studies: None Findings: Lungs are well expanded and appear clear. Heart and mediastinumare unremarkable. Pleural space is clear. IMPRESSION: 1. No acute abnormality identified. Dictated on: 01/08/2025 4:13 PM This report has been electronically signed and approved by theinterpreting radiologist. Linus Jeffries DO IMG XR PROCEDURES Final Resul t documented in this encounter Visit Diagnoses Diagnosis Persistent cough- Primary Morbid (severe) obesity due to excess calories (CMS/HCC) Hyperlipidemia, unspecified (CMS/HCC) Mixed hyperlipidemia (CMS/HCC) Mixed hyperlipidemia Other fatigue Bilateral lower extremity edema Dyspnea on exertion Other dyspnea and respiratory abnormality Elevated blood sugar Other abnormal glucose Persistent cough documented in this encounter Care Teams Basket Braider Relationship Specialty Start Date End Date Linus Jeffries DO [address] [facility] [address] [place] [address] PCP - General Family Medicine 12/27/22 documented as of this encounter
--- OUTSIDE RECORDS SUMMARY | 2025-01-08 15:30 | XMS_ITS | Encounter Summary ---
Author Organization [facility] Address [address] [facility] [place] [address] Care Team Providers Care Supervisor Tellers Name Role Phone Linus Jeffries DO Primary Care Provider [phone] Encounter Details Date Type Department Care Team (Latest Contact Info) Description 01/08/2025 3:30 PM EDT Ancillary Procedure [facility] [address] [place] [address] Persistent cough Social History Tobacco Use Types Packs/Day Years [...] often do you attend chur ch or congregation services? 1 to 4 times per year 02/27/2024 Do you belong to any clubs o r organizations such as faith groups, unions, fraternal or athletic groups, or [...] Recorded Patient Health Questionnaire-2 Score 0 01/08/2025 [facility] - Occupational Stress Questionnaire Answer Date Recorded [...] any time in the past 12 m [facility], were you homeless or living in a skilled nursing (including now)? No 02/27/2024 Comments No Sex and Gender Information Value Date Recorded Sex Assigned at Not on file Legal Sex Female 6:58 PM EDT Gender Identity Not on file Sexual Orientation Not on file documented as of this encounter Functional Status * Over the [...] Rubin LPN documented as of this encounter Plan of Treatment Not on file documented as of this encounter Procedures Procedure Name Priority Date/Time Associated Diagnosis Comments XR CHEST 2 VIEWS Routine 01/08/2025 3:46 PM EDT Persistent cough documented in this encounter Results * XR chest 2 views (01/08/2025 3:46 [...] electronically signed and approved by theinterpreting radiologist. us Linus Jeffries DO IMG XR PROCEDURES Final Resul t documented in this encounter Visit Diagnoses Diagnosis Persistent cough documented in this encounter Care Teams Supervisor Tellers Relationship Specialty Start Date End Date Linus Jeffries, [address] [place] [id number] PCP - General Family Medicine 12/27/22 documented as of this encounter
--- OUTSIDE RECORDS SUMMARY | 2025-01-15 11:30 | XMS_ITS ---
Author Organization [facility] in [place] Address [address] [place] [address] Care Team Providers Care Transport Specialist Name Role Phone Linus Jeffries DO Primary Care Provider Unavaila Sam Fernández Unavailable [phone] REASON FOR VISIT 1m F/U - SOB/cough Encounters Encounter Location Date Provider Diagnosis Pulmonary Medicine [place] [address] [place] [address] 01/15/2025 Sam Parks Plan Of Treatment Next Appt Details Provider Name:Sam Parks, 01/29/2025 03:40:00 PM, [address] [place], [address], Progress Notes * Margie ALTMAN LDOB:1965 (59 yo F)Acc No.[id number]:01/15/2025 UNLOCKED PROGRESS NOTE Follow Up Patient: Emma EDMOND Margie Walker Provider: Niki Parks DO :1965 A ge:59 Y S ex:Female Date:01/15/2025 Address:[address] [facility] [place] [place], [id number] Pcp:Linus Jeffries DO Subjective: * Chief Complaints: * 1 . 1m F/U - SOB/cough. * Medical History: Objective: * Vitals: Assessment: Plan: * Treatment: * * Electronic signature of Rita Parks DO on 01/22/2025 at 12:43 PM EDT Sign off status: Pending Visit Status: R /S (Rescheduled) * Provider: Niki Parks DO Date: 0 01/15/2025 Generated for Roderick devlin/Gisselle/Akbaritting on: 0 01/22/2025 12:43 PM EDT
--- OUTSIDE RECORDS SUMMARY | 2025-01-22 12:43 | XMS_ITS | Encounter Summary ---
Author Organization [facility] Address [address] [place] [address] Care Team Providers Care Telesales Agent Name Role Phone Linus Jeffries DO Primary Care Provider [phone] Carl Milligan PA Unavailable Encounter Details Date Type Department Care Team (Late st Contact Info) Description 06/07/2023 Abstract [facility] [address] [place] [id number] Carl Milligan PA [address] [place] [address] Social History Tobacco Use Types Packs/Day Years Used Date Smoking Tobacco: Never Smokeless Tobacco: Never Tobacco Cessation:Counseling Given: Not Answered Alcohol Use Standard Drinks/Week Comments Yes 5 (1 standard drink = 0.6 oz pur e alcohol) Comments Unknown Sex and Gender Information Value Date Recorded Sex Assigned at Not on file Legal Sex Female 6:58 PM EDT Gender Identity Not on file Sexual Orientation Not on file COVID-19 Exposure Response Date Recorded In the last 10 days, have yo u been in contact with someone who was confirmed or suspected to have Coronavirus/COVID-19? No / Unsure 06/07/2023 9:28 AM EDT documented as of this encounter Plan of Treatment Not on file documented as of this encounter Visit Diagnoses Not on filedocumented in this encounter Care Teams Telesales Agent Relationship Specialty Start Date End Date Linus Jfefries DO [address] [place] [address] PCP - General Family Medicine 12/27/22 Carl Milligan PA [address] [place] [address] PCP - Medical [place] [employer] 08/22/21 11/07/24 documented as of this encounter
--- OUTSIDE RECORDS SUMMARY | 2025-01-22 12:44 | XMS_ITS | Encounter Summary ---
Author Organization [facility] Address [address] [place] [address] Care Team Providers Care Can Maker Name Role Phone Linus Jeffries DO Primary Care Provider [phone] Encounter Details Date Type Department Care Team (Late st Contact Info) Description 01/08/2025 Bamboo flowsheet [facility] [address] [place] [address] Linus Jeffries DO [address] [place] [address] Social History Tobacco Use Types Packs/Day Years [...] 02/27/2024 How often do you attend chur or methodist services? 1 to 4 times per year 02/27/2024 Do you belong to any clubs o r organizations such as muslim groups, unions, fraternal or athletic groups, or [...] Recorded Patient Health Questionnaire-2 Score 0 01/08/2025 [facility] - Occupational Stress Questionnaire Answer Date [...] any time in the past 12 m [facility], were you homeless or living in a nursing home (including now)? No 02/27/2024 Comments No Sex and Gender Information Value Date Recorded Sex Assigned at Not on file Legal Sex Female 6:58 PM EDT Gender Identity Not on file Sexual Orientation Not on file documented as of this encounter Plan of Treatment Not on file documented as of this encounter Visit Diagnoses Not on filedocumented in this encounter Care Teams Can Maker Relationship Specialty Start Date End Date Linus Jeffries DO [address] [place] [address] PCP - General Family Medicine 12/27/22 documented as of this encounter
--- OUTSIDE RECORDS SUMMARY | 2025-01-22 12:44 | XMS_ITS | Clinical Summary ---
Author Organization [facility] Healthcare Address [address] [place] [address] Care Team Providers Care Production Drilling Machine Operator Name Role Phone Linus Jeffries DO Primary Care Provider [phone] Allergies Active Allergy Reactions Criticality Noted Date Comments Bee Pollen Swelling 06/07/2023 Meperidine GI intolerance 06/07/2023 Sulfa Antibiotics Rash Low 06/07/2023 Medications cholecalciferol (Vitamin D-3) 50 MCG (1999) tablet 1 (one) time each day at the same time. Active Multiple Vitamin (Multi Vitamin) tablet 1 (one) time each day at the same time. Active propranolol LA (Inderal LA) 60 MG 24 hr capsuleIndication s:Other migraine without status migrainosus, not intractable Take 1 capsule (60 mg) by mouth Daily 90 capsule 3 024 Active atorvastatin (Lipitor) 20 MG tabletIndications :Hyperlipidemia, unspecified hyperlipidemia type (CMS/HCC) TAKE 1 TABLET BY MOUTH EVERY DAY 30 tablet 5 025 Active almotriptan (Axert) 6.25 MG tablet Take 6.25 mg by mouth 1 tablet as needed, may take second dose at least 2 hours after first dose up to 2 tablets per day as needed Orally Once a day Active Budeson-Glycopyrr ol-Formoterol (Breztri Aerosphere) 160-9-4.8 MCG/ACT aerosol Inhale 2 puffs in the morning and 2 puffs before bedtime. 025 Active esomeprazole (NexIUM) [address] capsule 1 (one) time each day at the same time 1 capsule 1/2 to 1 hour before morning meal Orally Once a day 025 Active fexofenadine (Annalee) 180 MG tablet Take 180 mg by mouth 1 (one) time each day at the same time 025 Active fluticasone (Flonase) 50 MCG/ACT nasal spray Administer 1 spray into each nostril in the morning and 1 spray before bedtime. Active fexofenadine (Annalee) 180 MG tablet Take 180 mg by mouth Daily Active albuterol HFA 90 mcg/act inhalerIndication s:Persistent cough,Dyspnea on exertion Inhale 2 puffs every 4 (four) hours if needed for wheezing 18 g 3 025 2025 Active ibuprofen 800 MG tabletIndications :Other migraine without status migrainosus, not intractable TAKE 1 TABLET BY MOUTH EVERY 8 HOURS NEEDED for MILD PAIN 60 tablet 1 025 Active coenzyme Q-10 100 MG capsule Take 400 mg by mouth. 2024 Discontinued ibuprofen 800 MG tabletIndications :Other migraine without status migrainosus, not intractable Take 1 tablet (800 mg) by mouth every 8 (eight) hours if needed for mild pain 60 tablet 1 024 2024 Discontinued methylPREDNISolon e (Medrol Dospak) 4 MG tabletsIndication s:Persistent cough,Dyspnea on exertion Follow schedule on package instructions 21 tablet 025 2024 Active Problems Problem Noted Date Diagnosed Date Acute left lumbar radiculopathy 02/28/2024 Atypical migraine 02/28/2024 Hyperlipidemia 02/28/2024 Encounters Date Type Department Care Team Description 01/14/2025 Refill [facility] [address] [facility] [address] [place] [address] Linus Jeffries, Other migraine without status migrainosus, not intractable 01/09/2025 Results Follow-Up [facility] [address] [facility] [address] [place] [address] Justin Rubin LPN 01/08/2025 3:30 PM EDT Ancillary Procedure [facility] XRAY [address] [facility] [address] [place] [address] Persistent cough 01/08/2025 3:00 PM EDT Office Visit [facility] [address] [place] [address] Linus Jeffries DO Persistent cough (Primary Dx); Morbid (severe) obesity due to excess calories (CMS/HCC); Hyperlipidemia, unspecified (CMS/HCC); Mixed hyperlipidemia (CMS/HCC); Other fatigue; Bilateral lower extremity edema; Dyspnea on exertion; Elevated blood sugar 01/08/2025 Bamboo flowsheet [facility] FM [address] [place] [address] Linus Jeffries DO 01/08/2025 Travel 01/07/2025 Travel from Last 3 Months Immunizations Immunization Administration Dates Next Due Influenza, injectable, quadrivalent, preservativ e free 05/21/2020 Influenza, seasonal, intradermal, preservative f ree 05/21/2015 Family History Medical History Relation Name Comments Cancer Father Satya Caldwell Hypertension Father Satya Caldwell Prostate cancer Father Satya Caldwell Cancer Maternal Grandfather Naun - leukemia Cancer Maternal Grandmother [place] - colon ca Colon cancer Maternal Grandmother [place] - colon ca Osteoporosis Mother Latonya Caldwell Alcohol abuse Paternal Grandmother [place] Diabetes Paternal Grandmother [place] Relation Name Status Comments Father Satya Caldwell Alive Maternal Grandfather Naun - leukemia Maternal Grandmother [place] - colon ca Mother Latonya Caldwell Alive Paternal Grandmother Masha Social History Tobacco Use Types Packs/Day Years [...] often do you attend chur ch or zoroastrian services? 1 to 4 times per year 02/27/2024 Do you belong to any clubs o r organizations such as buddhist groups, unions, fraternal or athletic groups, or [...] Recorded Patient Health Questionnaire-2 Score 0 01/08/2025 [facility] - Occupational Stress [...] any time in the past 12 m [facility], were you homeless or living in a chcf (including now)? No 02/27/2024 Comments No Sex and Gender Information Value Date Recorded Sex Assigned at Not on file Legal Sex Female 6:58 PM EDT Gender Identity Not on file Sexual Orientation Not on file Last Filed Vital Signs Vital Sign Reading Time Taken Comments Blood Pressure 118/86 01/08/2025 2:45 PM EDT Pulse 65 01/08/2025 2:45 PM EDT Temperature 36.1 C (96.9 F) 01/08/2025 2:45 PM EDT Respiratory Rate - - Oxygen Saturation 98% 01/08/2025 2:45 PM EDT Inhaled Oxygen Concentration - - Weight 101 kg (223 lb) 01/08/2025 2:45 PM EDT Height 157.5 cm (5' 2 ) 09/04/2024 2:23 PM EST Body Mass Index 40.79 09/04/2024 2:23 PM EST Plan of Treatment Health Maintenance Due Date Last Done Comments CT Colonography 1964 FIT-DNA 1964 FIT 1964 FOBT 1965 Sigmoidoscopy 1964 Pap Smear 1985 Mammogram 04/04/2025 04/04/2024, 1202/2022, 05/07/2021, Additional history exists Influenza Vaccine (Season Ended) 2025 05/21/20 20, 05/21/2015 Cervical Cancer Screening 03/17/2026 HPV/Cotest 03/17/2026 03/17/2021 Colonoscopy 03/29/2029 03/29/2019 Colorectal Cancer Screening 03/29/2029 Procedures Procedure Name Priority Date/Time Associated Diagnosis Comments B-TYPE NATRIURETIC PEPTIDE Routine 01/09/2025 7:52 AM EDT Bilateral lower extremity edema Dyspnea on exertion D-DIMER, QUANTITATIVE Routine 01/09/2025 7:52 AM EDT Persistent cough Other fatigue Bilateral lower extremity edema Dyspnea on exertion LIPID PANEL Routine 01/09/2025 7:52 AM EDT Hyperlipidemia, unspecified (CMS/HCC) TSH Routine 01/09/2025 7:52 AM EDT Other fatigue SED RATE BY MODIFIED WESTERGREN Routine 01/09/2025 7:52 AM EDT Persistent cough Other fatigue Bilateral lower extremity edema Dyspnea on exertion HEMOGLOBIN A1C Routine 01/09/2025 7:52 AM EDT Elevated blood sugar CBC (INCLUDES DIFF/PLT) Routine 01/09/2025 7:52 AM EDT Morbid (severe) obesity due to excess calories (CMS/HCC) Hyperlipidemia, unspecified (CMS/HCC) Mixed hyperlipidemia (CMS/HCC) Persistent cough Other fatigue Bilateral lower extremity edema Dyspnea on exertion COMPREHENSIVE METABOLIC PANEL Routine 01/09/2025 7:52 AM EDT Morbid (severe) obesity due to excess calories (CMS/HCC) Hyperlipidemia, unspecified (CMS/HCC) Mixed hyperlipidemia (CMS/HCC) Persistent cough Other fatigue Bilateral lower extremity edema Dyspnea on exertion XR CHEST 2 VIEWS Routine 01/08/2025 3:46 PM EDT Persistent cough BI MAMMOGRAM SCREENING TOMOSYNTHESIS BILATERAL Routine 04/04/2024 4:03 PM EDT Encounter for screening mammogram for breast cancer THINPREP TIS PAP REFLEX HPV MRNA E6/E7 ([id number]) Routine 03/17/2021 COLONOSCOPY Routine 03/29/2019 12:00 PM EDT from Last 3 Months or Most Recently Relevant to Health Maintenance Results * Sedimentation rate, automated (01/09/2025 7:52 AM EDT) Sed Rate-Westergren 2 0 - 40 mm/hr [facility] Blood Venous blood specimen / Unknown 01/09/2025 7:52 AM EDT 01/09/2025 Narrative [facility] - 01/10/2025 11:07 AM EDT Performed at: 01 - [address] [id number] Technical Research Scientist: Adalid Abreu PhD, Phone: [phone] us Linus Jeffries DO LAB BLOOD ORDERABLES Final Re sult [facility] * D-dimer, quantitative (01/09/2025 7:52 AM EDT) Pathologist [facility] D-DIMER, QUANTITATIVE <0.20 0.00 - 0.49 mg/L FEU [facility] Comment: According to the assay manager inspection's published package insert, a normal (<0.50 mg/L FEU) D-dimer result in conjunction with a non-high clinical probability assessment, excludes deep vein thrombosis (DVT) and pulmonary embolism (PE) with high sensitivity. D-dimer values increase with age and this can make VTE exclusion of an older population difficult. To address this, the [employer], based on best available [...] 11:07 AM EDT Performed at: 01 - [facility] [address] [id number] Technical Research Scientist: Adalid Abreu PhD, Phone: [phone] Linus Jeffries DO LAB BLOOD ORDERABLES Final Re sult [facility] * (ABNORMAL) CBC and differential (01/09/2025 7:52 AM EDT) Pathologist [facility] WBC 8.9 3.4 - 10.8 x10E3/uL [facility] [...] - 01/10/2025 11:07 AM EDT Performed at: [address] [place] [id number] Technical Research Scientist: Adalid Abreu PhD, Phone: [phone] Linus Jeffries LAB BLOOD ORDERABLES Final Re sult Performing Organization Address [facility]/ZIP Co de Phone Number [facility] * TSH (01/09/2025 7:52 AM EDT) Pathologist [facility] TSH 2.180 0.450 - 4.500 uIU/mL [facility] Blood Venous blood specimen / Unknown 01/09/2025 7:52 AM EDT 01/09/2025 Narrative [facility] - 01/10/2025 11:07 AM EDT Performed at: [address] [place] [id number] Technical Research Scientist: Adalid Abreu PhD, Phone: [phone] Linus Jeffries LAB BLOOD ORDERABLES Final Re sult Performing Organization Address [facility]/ZIP Co de Phone Number [facility] * B-type natriuretic peptide (01/09/2025 7:52 AM EDT) [facility] B TYPE NATRIURETIC PEPTIDE (BNP) 17.7 0.0 - 100.0 pg/mL [facility] Comment:[employer] XP methodology Blood Venous blood specimen / Unknown 01/09/2025 7:52 AM EDT 01/09/2025 Narrative [facility] - 01/10/2025 11:07 AM EDT Performed at: [address] [id number] Technical Research Scientist: Adalid Abreu PhD, Phone: [phone] Linus Jeffries LAB BLOOD ORDERABLES Final Re sult Performing Organization Address City/[facility]/ZIP Co de Phone Number [facility] * (ABNORMAL) Hemoglobin A1c (01/09/2025 7:52 AM EDT) Pathologist [facility] HgbA1C 5.9(H) 4.8 - 5.6 % [facility] Comment: Prediabetes: 5.7 - 6.4 Diabetes: >6.4 Glycemic control for adults with diabetes: <7.0 Blood Venous blood specimen / Unknown 01/09/2025 7:52 AM EDT 01/09/2025 Narrative [facility] - 01/10/2025 11:07 AM EDT Performed at: - [address] [id number] Technical Research Scientist: Adalid Abreu PhD, Phone: [phone] Linus Jeffries LAB BLOOD ORDERABLES Final Re sult Performing Organization Address [facility] Co de Phone Number [facility] * (ABNORMAL) [...] - 01/10/2025 11:07 AM EDT Performed at: [address] [id number] Technical Research Scientist: Adalid Abreu PhD, Phone: [phone] Linus Jeffries DO LAB BLOOD ORDERABLES Final Re sult Performing Organization Address City/[facility]/ZIP Co de Phone Number [facility] * (ABNORMAL) Comprehensive metabolic panel (01/09/2025 [...] 11:07 AM EDT Performed at: 01 - [facility] [address] [id number] Technical Research Scientist: Adalid Abreu PhD, Phone: [phone] Linus Jeffries DO LAB BLOOD ORDERABLES Final [...] DO IMG XR PROCEDURES Final Resul t * Bilateral screening mammogram with tomosynthesis (04/04/2024 4:03 PM EDT) Anatomical Region Laterality Modality Breast Bilateral Mammography 04/04/2024 4:40 PM EDT Impressions 04/05/2024 7:21 AM EDT BIRADS 2 - Benign Follow-up: Routine Screening Mamm Board Certified Radiologists. Accredited by the ACR and FDA. MAMMOGRAPHY IS VERY IMPORTANT TO YOUR HEALTH. THE [employer] [employer] GUIDELINES RECOMMEND THAT WOMEN 40 YEARS OF AGE AND OLDER SHOULD HAVE A MAMMOGRAM EVERY YEAR. A REMINDER LETTER WILL BE SENT AT THE APPROPRIATE TIME. THIS FACILITY UTILIZES A REMINDER SYSTEM TO ENSURE ALL PATIENTS RECEIVE REMINDER NOTIFICATIONS AT THE APPROPRIATE TIME BASED ON THE RECOMMENDATIONS OF THIS EXAM. THIS INCLUDES REMINDERS FOR ROUTINE SCREENING MAMMOGRAMS, DIAGNOSTIC MAMMOGRAMS IN WHICH THE PATIENT IS ASKED TO RETURN FOR ADDITIONAL VIEWS, OR OTHER BREAST IMAGING INTERVENTIONS WHEN APPROPRIATE. THE PATIENT WILL BE PLACED IN THE APPROPRIATE REMINDER SYSTEM INCLUDING A REMINDER AT THE APPROPRIATE TIME FOR ANY PENDING ADDITIONAL VIEWS. TRANSCRIBED BY: ELECTRONICALLY SIGNED BY: Alex Todd MD Narrative 04/05/2024 7:21 AM EDT EXAMINATION: BI MAMMOGRAM SCREENING TOMOSYNTHESIS BILATERAL CLINICAL HISTORY:screening COMPARISON: 2022. RESULT: Density: The breasts are almost entirely fatty Overall appearance is stable. Typically benign calcifications. There is no suspicious mass, asymmetry, architectural distortion, or calcification Procedure Note Alex Todd MD - 04/05/2024 EXAMINATION: BI MAMMOGRAM SCREENING TOMOSYNTHESIS BILATERAL CLINICAL HISTORY:screening COMPARISON: 2022. RESULT: Density: The breasts are almost entirely fatty Overall appearance is stable. Typically benign calcifications. There is no suspicious mass, asymmetry, architectural distortion, orcalcification IMPRESSION: BIRADS 2 - Benign Follow-up: Routine Screening Mamm Board Certified Radiologists. Accredited by the ACR and FDA. MAMMOGRAPHY IS VERY IMPORTANT TO YOUR HEALTH. THE [employer] [employer]UIDELINES RECOMMEND THAT WOMEN 40 YEARS OF AGE AND OLDER SHOULD HAVE AMAMMOGRAM EVERY YEAR. A REMINDER LETTER WILL BE SENT AT THE APPROPRIATE TIME. THIS FACILITYUTILIZES A REMINDER SYSTEM TO ENSURE ALL PATIENTS RECEIVE REMINDERNOTIFICATIONS AT THE APPROPRIATE TIME BASED ON THE RECOMMENDATIONS OF THISEXAM. THIS INCLUDES REMINDERS FOR ROUTINE SCREENING MAMMOGRAMS, DIAGNOSTICMAMMOGRAMS IN WHICH THE PATIENT IS ASKED TO RETURN FOR ADDITIONAL VIEWS,OR OTHER BREAST IMAGING INTERVENTIONS WHEN APPROPRIATE. THE PATIENT WILLBE PLACED IN THE APPROPRIATE REMINDER SYSTEM INCLUDING A REMINDER AT THEAPPROPRIATE TIME FOR ANY PENDING ADDITIONAL VIEWS. TRANSCRIBED BY: ELECTRONICALLY SIGNED BY: Alex Todd MD Linus Jeffries DO IMG BI PROCEDURES Final Resul t * THINPREP TIS PAP REFLEX HPV MRNA E6/E7 ([id number]) (03/17/2021) CLINICAL INFORMATION: None given [facility] LMP: SILENT WITH IUD [facility] PREV. PAP: NL [facility] PRE[facility]. BX: NA [facility] SOURCE: Endocervix [facility] STATEMENT OF ADEQUACY: SEE COMMENT [facility] Comment: Satisfactory for evaluation. Endocervical/transformation zone component present. INTERPRETATION /RESULT: Negative for intraepithelial lesion or malignancy. [facility] COMMENT: This Pap test has been evaluated with computer assisted technology. [facility] CYTOTECHNOLOGI ST: SEE COMMENT See Note: [facility] Comment: Reference Range: ZL, CT(ASCP) CT screening location: [place] [address]. REVIEW CYTOTECHNOLOGI ST: SEE COMMENT [facility] Comment: PEH, CT(ASCP) CT screening location: [place] [address]. COMMENT SEE COMMENT [facility] Comment: EXPLANATORY NOTE: The Pap is a screening test for cervical cancer. It is not a diagnostic test and is subject to false negative and false positive results. It is most reliable when a satisfactory sample, regularly obtained, is submitted with relevant clinical findings and history, and when the Pap result is evaluated along with historic and current clinical information. 03/17/2021 us Suraj Brown DO [facility] Final Result [facility] * Colonoscopy (03/29/2019 12:00 PM EDT) Anatomical Region Laterality Modality Endoscopy 03/29/2019 12:0 0 PM EDT Narrative 03/29/2019 12:00 PM EDT PERFORMED AT [facility] LOCATION:[id number] [facility] Procedure Note CONVERSION, GENERIC - 01/04/2023 PERFORMED AT [facility] LOCATION:[id number] [facility] Linus Jeffries DO ENDOSCOPY PROCEDURE ORDERABLE S Final Result from Last 3 Months or Most Recently Relevant to Health Maintenance Insurance * Guarantor: Margie Diaz Account Type Relation to Patient Date of Phone Billing Address Personal/Family Self 1965 [id number] (Work) [address] [place] [address] [employer] Member Subscriber Plan / Payer (Ef fective 2022-Present) Name:Margie Diaz Relation to Subscriber:Self Name:Margie Diaz Payer ID:Not on file Type:Not on file Address: [place] [id number] [employer] Member Subscriber Plan / Payer (Ef fective 2022-Present) Name:Margie Diaz Relation to Subscriber:Spouse Name:Naun Diaz Date of :1965 (Work) Address: [address] [place] [address] Payer ID:Not on file Type:Not on file Address: [facility] [address] [place] [id number] Care Teams Production Drilling Machine Operator Relationship Specialty Start Date End Date Linus Jeffries DO [address] [place] [address] PCP - General Family Medicine 12/27/22
--- OUTSIDE RECORDS SUMMARY | 2025-01-22 12:44 | XMS_ITS | Patient Health Record ---
Author Organization [facility] [place] Address [address] [place] [address] Care Team Providers Care Bursar Name Role Phone Linus Jeffries DO Primary Care Provider Sam Del Toro Unavailable [phone] Allergies Allergen (clinical drug ingredient) Drug/Non Drug Allergy documented on EMR Reaction Allergy Type Onset Date Status Bee Sting (uncoded) Swelling Allergy Active meperidine Demerol nausea and vomiting Drug Allergy Active Substance with sulfonamide structure and antibacterial mechanism of action (substance) Sulfa Antibiotics rash Drug Allergy Active Reason For Referral No Information Medications Medication SIG (Take, Route, Frequency, Duration) [...] mouth Daily Oral for 90 Days Active Almotriptan Malate 6.25 MG 1 tablet as n eeded, may take second dose at least 2 hours after first dose up to 2 tablets per day as needed Orally Once a day Active Atorvastatin Calcium 20 MG TAKE 1 TABLET BY MOUTH ONCE DAILY Oral for 30 Days Active Esomeprazole Magnesium 20 MG 1 capsule 1/2 to 1 hour before morning meal Orally Once a day Active Social History Tobacco Use: Social History Observation Description Date Details (start date - stop date) Never Smoker NA - NA Tobacco Control (Standard) Question Answer Notes Tobacco use: Nonsmoker Problems Problem Type SNOMED Code ICD Code Onset Dates Problem Status W/U Status Risk Notes Problem HLD (hyperlipidemi a) (E78.5) Active confirmed Problem migraine (disorder) (66500201) Migraines (G43.909) Active confirmed Vital Signs Heart Rate 73 /min 12/18/2024 Temperature 97.0 degrees Fahrenheit 12/18/2024 Respiratory Rate 18 /min 12/18/2024 Oximetry 98 % 12/18/2024 Blood pressure diastolic 87 mm Hg 12/18/2024 Height 62 in 12/18/2024 Blood pressure systolic 140 mm Hg 12/18/2024 Weight 226.4 lbs 12/18/2024 BMI 41.4 kg/m2 12/18/2024 Procedures Procedure Date Ordered Date Performed Result Body Sit e Spirometry (Pre Only) - Performed 12/18/2024 N/ A Echocardiogram 2D M Mode w/ Doppler (measure RVSP) 12/18/2024 N/A PFT (79726, 41607, 27957) 12/18/2024 N/A Encounters Encounter Location Date Provider Diagnosis Pulmonary [facility] [place] [address] [place] [address] 12/02/2024 [facility] Pulmonary Medicine [place] [address] [place] [address] 01/08/2025 [facility] Pulmonary Medicine [place] [address] [place] [address] 12/18/2024 [facility] Shortness of breath R06.02 ; Chronic cough [...] difficult at this time. Plan Of Treatment Pending Test Test Name Order Date Spirometry (Pre Only) - Performed 2024 Echocardiogram 2D M Mode w/ Doppler (manuela sure RVSP) 12/18/2024 CT Chest High Resolution 12/18/2024 PFT (40902, 12507, 89984) 12/18/2024 Next Appt Details Provider Name:Sam Parks, 01/29/2025 03:40:00 PM, [address] [place], [address], Insurance Providers Payer Name Payer Address Payer Phone Subscriber Number Group Number Insured Name Patient Relationship to Insured Coverage Start Date Coverage End Date MMO [address] [place], [place] [id number] Margie Diaz Self - patient is the insured Medical (General) History Medical History History ICD Code Migraines G43.909 HLD (hyperlipidemia) E78.5 Surgical History Surgery Date(Month/Year) pilonidal cyst excision oopherectomy-left diagnostic laparoscopy oral surgery
--- OUTSIDE RECORDS SUMMARY | 2025-01-22 12:44 | XMS_ITS | Encounter Summary ---
Author Organization [facility] Address [address] [place] [address] Care Team Providers Care Resident Program Specialist Name Role Phone Linus Jeffries DO Primary Care Provider [phone] Reason for Visit * Reason Onset Date Comments Results 01/09/2025 Encounter Details Date Type Department Care Team (Late st Contact Info) Description 01/09/2025 Results Follow-Up [facility] FM [address] [place] [address] Justin Rubin LPN [address] [place] [address] Social History Tobacco Use Types Packs/Day Years [...] How often do you attend chur or episcopalian services? 1 to 4 times per year 02/27/2024 Do you belong to any clubs o r organizations such as pentecostal groups, unions, fraternal or athletic groups, or [...] Recorded Patient Health Questionnaire-2 Score 0 01/08/2025 [facility] - Occupational Stress [...] any time in the past 12 m [facility], were you homeless or living in a group home (including now)? No 02/27/2024 Comments No Sex and Gender Information Value Date Recorded Sex Assigned at Not on file Legal Sex Female 6:58 PM EDT Gender Identity Not on file Sexual Orientation Not on file documented as of this encounter Miscellaneous Notes * Telephone Encounter - Justin Rubin LPN - 01/09/2025 8:07 AM EDT Notified pt via [employer]. Advised to call if any questions or concerns. * Telephone Encounter - Justin Rubin LPN - 01/09/2025 8:07 AM EDT ----- Message from Dr. Linus Jeffries sent at 01/09/2025 6:47 AM EDT ----- Regarding: FW: X-ray wnl, please notify pt ----- Message ----- From: Interface,Incoming Img Aat Sent: 01/08/2025 6:24 PM EDT To: Linus Jeffries DO documented in this encounter Plan of Treatment Not on file documented as of this encounter Visit Diagnoses Not on filedocumented in this encounter Care Teams Resident Program Specialist Relationship Specialty Start Date End Date Linus Jeffries DO [address] [place] [address] PCP - General Family Medicine 12/27/22 documented as of this encounter
--- OUTSIDE RECORDS SUMMARY | 2025-01-22 12:44 | XMS_ITS | Encounter Summary ---
Author Organization [facility] Address [address] [place] [address] Care Team Providers Care Sports Complex Attendant Name Role Phone Linus Jeffries DO Primary Care Provider [phone] Carl Milligan PA Unavailable Encounter Details Date Type Department Care Team (Late st Contact Info) Description 02/01/2024 Abstract [facility] [address] [facility] [address] [place] [address] Linus Jeffries DO [address] [facility] [address] [place] [address] Social History Tobacco Use Types Packs/Day Years [...] on filedocumented in this encounter Care Teams Sports Complex Attendant Relationship Specialty Start Date End Date Linus Jeffries DO [address] [place] [address] PCP - General Family Medicine 12/27/22 Carl Milligan, MOLLY [address] [place] [address] PCP - Medical [employer] 08/22/21 11/07/24 documented as of this encounter
--- OUTSIDE RECORDS SUMMARY | 2025-01-22 12:44 | XMS_ITS | Encounter Summary ---
Author Organization [facility] Address [address] [place] [address] Care Team Providers Care Health Editor Name Role Phone Linus Jeffries DO Primary Care Provider [phone] Reason for Visit * Reason Comments Med Refill Encounter Details Date Type Department Care Team (Late st Contact Info) Description 01/14/2025 Refill [facility] [address] [place] [address] Linus Jeffries, DO [address] [place] [address] Other migraine without status migrainosus, not intractable Social History Tobacco Use Types Packs/Day Years [...] week 02/27/2024 How often do you attend [facility] or adventist services? 1 to 4 times per year 02/27/2024 Do you belong to any clubs o r organizations such as denominational groups, unions, fraternal or athletic groups, or [...] Recorded Patient Health Questionnaire-2 Score 0 01/08/2025 [facility] - [...] any time in the past 12 m [facility], were you homeless or living in a [place] health care facility (including now)? No 02/27/2024 Comments No Sex and Gender Information Value Date Recorded Sex Assigned at Not on file Legal Sex Female 6:58 PM EDT Gender Identity Not on file Sexual Orientation Not on file documented as of this encounter Plan of Treatment Not on file documented as of this encounter Visit Diagnoses Diagnosis Other migraine without status migrainosus, not intractable documented in this encounter Care Teams Health Editor Relationship Specialty Start Date End Date Linus Jeffries DO [address] [place] [address] PCP - General Family Medicine 12/27/22 documented as of this encounter
--- OUTSIDE RECORDS SUMMARY | 2025-01-22 12:44 | XMS_ITS | Encounter Summary ---
Author Organization [facility] Address [address] [place] [address] Care Team Providers Care Research Specialist Name Role Phone Linus Jeffries DO Primary Care Provider [phone] Encounter Details Date Type Department Care Team (Latest Contact Info) Description 01/08/2025 Travel Social History Tobacco Use Types Packs/Day Years [...] often do you attend chur ch or latter day services? 1 to 4 times per year 02/27/2024 Do you belong to any clubs o r organizations such as yarsani groups, unions, fraternal or athletic groups, or [...] Recorded Patient Health Questionnaire-2 Score 0 01/08/2025 [facility] - Occupational Stress Questionnaire Answer Date Recorded [...] time in the past 12 m [facility], were you homeless or living in a intermediate (including now)? No 02/27/2024 Comments No Sex [...] on filedocumented in this encounter Care Teams Research Specialist Relationship Specialty Start Date End Date Linus Jeffries DO [address] [place] [address] PCP - General Family Medicine 12/27/22 documented as of this encounter
[2025-01-22 12:52] LABS: Hemoglobin 13.9 g/dL (12.0-16.0)
--- NOTE | 2025-01-22 13:32 | RT_ITS ---
The [facility] Test Date: 2025-01-22 Pat Name: JUANA ALTMAN Department: Room: - Gender: Female Supervisor Cigarette Making Department: Ashwin Treviño RRT : 1965 Requested By: Sam Parks Order Number: [id number] Reading MD: Sam Parks Interpretive Statements Pulmonary function testing was completed according to ATS criteria. Findings were considered accurate and reproducible. No bronchodilator was administered due to normal spirometric values. Spirometry: -FEV1/FVC: Normal @ 87% -FEV1: Normal @ 100% -FVC: Normal @ 89% Lung volumes by plethysmography: -RV: Normal @ 93% -TLC: Normal @ 99% Diffusion capacity: -DLCO: Very mild reduction @ 79% when corrected for Hb 13.9g/dL Flow-volume loop: -Normal shape Flow-pressure loop: ???Normal pattern Impressions: -Normal spirometry and lung volumes with an isolated very mild reduction in DLCO. This pattern can be seen in, but not restricted to, cardiopulmonary vascular disorders, early interstitial lung disease, and early emphysema. Clinical correlation required. Electronically Signed On 01-22-2025 16:26:42 EDT by Sam Parks
--- NOTE | 2025-01-22 13:32 | CT_ITS ---
The [address] [address] Patient Name: JUANA ALTMAN MRN: [id number] date: 1965 Sex: F Assigned Patient Location: CARD Current Patient Location: CARD Accession/Order Number: [id number] Exam Date: 01/22/2025 15:23 Report Date: 01/22/2025 15:31 At the request of: JORGE COHEN DO Procedure: CT chest high res CT Chest high resolution without contrast TECHNIQUE: Axial imaging with 2-D reconstruction. Prone and supine positioningThe CT exam was performed using one or more the following dose reduction techniques: Automated exposure control, adjustment of the MA and/or Kv according to patient size, or use of the iterative reconstruction technique. History: Chronic cough and wheezing COMPARISON: None THYROID: Unremarkable TRACHEA AND BRONCHI: Patent trachea.Mild central bronchial wall thickening. ESOPHAGUS: Unremarkable. HEART: Within normal limits PERICARDIAL EFFUSION: None CORONARY ARTERY CALCIFICATION: None MEDIASTINUM: No adenopathy. No pneumoperitoneum. No mediastinal hematoma. PULMONARY TAMELA: No hilar mass or adenopathy is seen. THORACIC AORTA Unremarkable LUNG NODULE None LUNGS: Mild atelectasis in prone position. Otherwise no acute interstitial lung findings. PLEURAL EFFUSION: None PNEUMOTHORAX: No pneumothorax seen. CHEST WALL: No abnormality AXILLA:Unremarkable BONY STRUCTURES Intact UPPER ABDOMEN: Images of the upper abdomen are noncontributory. CT/CT chest high res IMPRESSION: Mild bronchial wall thickening. No acute interstitial lung disease. Impression dictated by: Timothy Mathew M.D. 01/22/2025 3:31 PM Dictation Location: [employer] Electronically authenticated by: [id number] Y Date: 01/22/2025 15:31
== END 2025-01-22 12:35 | disposition home or self-care (01) ==
PROVIDERS: PCP Family Medicine; Visit Provider Internal Medicine
DX: R06.02 Shortness of breath (principal); R05.3 Chronic cough; R60.0 Localized edema
CPT/HCPCS: 36415; 71250; 85018; 94010; 94726; 94729

== ENCOUNTER 2025-01-29 12:35 | Outpatient (OUT) | payer OTHER, SELFPAY ==
--- OUTSIDE RECORDS SUMMARY | 2025-01-08 11:12 | XMS_ITS ---
Author Organization [facility] in [place] Address [address] [place] [address] Care Team Providers Care Agricultural Equipment Sales Manager Name Role Phone Linus Jeffries DO Primary Care Provider Unavaila татьяна Charly Sam Unavailable [phone] REASON FOR VISIT Appt. Reschedule/Testing Encounters Encounter Location Date Provider Diagnosis Pul[facility] [address] [place] [address] 01/08/2025 Sam Parks Plan Of Treatment Next Appt Details Provider Name:Sam Richi, 01/29/2025 03:40:00 PM, [address] [place], [address], Progress Notes * Margie ALTMAN LDOB:1965 (59 yo F)Acc No.[id number]:01/08/2025 Patient: Margie RIGGS :1965 A ge:59 Y S ex:Female Address:[address] [place], [address] * true * Date: Generated for Printi ng/Faxing/eTransmitting on: 0 01/29/2025 12:37 PM EDT
--- OUTSIDE RECORDS SUMMARY | 2025-01-15 11:30 | XMS_ITS ---
Author Organization [facility] [place] Address [address] [place] [address] Care Team Providers Care Box Bender Name Role Phone Linus Jeffries DO Primary Care Provider Unavaila Sam Fernández Unavailable [phone] REASON FOR VISIT 1m F/U - SOB/cough Encounters Encounter Location Date Provider Diagnosis Pulmonary Medicine [place] [address] [place] [address] 01/15/2025 Sam Parks Plan Of Treatment Next Appt Details Provider Name:Sam Parks, 01/29/2025 03:40:00 PM, [address] [place], [address], Progress Notes * Margie ALTMAN LDOB:1965 (59 yo F)Acc No.[id number]:01/15/2025 UNLOCKED PROGRESS NOTE Follow Up Patient: Emma EDMOND Margie Walker Provider: Niki Parks DO :1965 A ge:59 Y S ex:Female Date:01/15/2025 Address:[address] [facility] [place], [id number] Pcp:Linus Jeffries DO Subjective: * Chief Complaints: * 1 . 1m F/U - SOB/cough. * Medical History: Objective: * Vitals: Assessment: Plan: * Treatment: * * Electronic signature of Rita Parks DO on 01/29/2025 at 12:37 PM EDT Sign off status: Pending Visit Status: R /S (Rescheduled) * Provider: Niki Parks DO Date: 0 01/15/2025 Generated for Roderick devlin/Gisselle/Akbaritting on: 0 01/29/2025 12:37 PM EDT
--- OUTSIDE RECORDS SUMMARY | 2025-01-29 11:40 | XMS_ITS ---
Author Organization The [facility] [place] Address [address] [place] [address] Care Team Providers Care Gold Beater Name Role Phone Linus Jeffries DO Primary Care Provider Unavaila Sam Fernández Unavailable [phone] REASON FOR VISIT 1m F/U - SOB/cough (echo) Encounters Encounter Location Date Provider Diagnosis Pulmonary Medicine [place] [address] [place] [address] 01/29/2025 Sam Parks Plan Of Treatment Next Appt Details Provider Name:Sam Parks, 01/29/2025 03:40:00 PM, [address] [place], [address], Progress Notes * Margie ALTMAN LDOB:1965 (59 yo F)Acc No.[id number]:01/29/2025 UNLOCKED PROGRESS NOTE Follow Up Patient: Emma EDMONDMargie Provider: Niki Parks DO :1965 A ge:59 Y S ex:Female Date:01/29/2025 Address:[address] [facility] [place] [place], [id number] Pcp:Linus Jeffries DO Subjective: * Chief Complaints: * 1 . 1m F/U - SOB/cough (echo). * Medical History: Objective: * Vitals: Assessment: Plan: * Treatment: * * Electronic signature of Rita Parks DO on 01/29/2025 at 12:37 PM EDT Sign off status: Pending Visit Status: C ONFPHONE (Voice) * Provider: Niki Parks DO Date: 0 01/29/2025 Generated for Roderick devlin/Gisselle/Akbaritting on: 0 01/29/2025 12:37 PM EDT
--- OUTSIDE RECORDS SUMMARY | 2025-01-29 12:37 | XMS_ITS | Encounter Summary ---
Author Organization [facility] Address [address] [place] [address] Care Team Providers Care Nozzle Cement Sprayer Helper Name Role Phone Linus Jeffries DO Primary Care Provider [phone] Encounter Details Date Type Department Care Team (Late st Contact Info) Description 01/22/2025 Clinisync Result Encounter [facility] External Department Unsolicited Provider, Generic External Data Social History Tobacco Use Types Packs/Day Years [...] often do you attend chur ch or anglican services? 1 to 4 times per year 02/27/2024 Do you belong to any clubs o r organizations such as mosque groups, unions, fraternal or athletic groups, or [...] Recorded Patient Health Questionnaire-2 Score 0 01/08/2025 [facility] - [...] any time in the past [address] [facility], were you homeless or living in a long term (including now)? No 02/27/2024 Comments No Sex and Gender Information Value Date Recorded Sex Assigned at Not on file Legal Sex Female 6:58 PM EDT Gender Identity Not on file Sexual Orientation Not on file documented as of this encounter Plan of Treatment Not on file documented as of this encounter Procedures Procedure Name Priority Date/Time Associated Diagnosis Comments RT PULMONARY FUNCTION TEST 01/22/2025 12:54 PM EDT documented in this encounter Results * RT PULMONARY FUNCTION TEST (01/22/2025 12:54 PM EDT) Anatomical Region Laterality Modality Other 01/22/2025 12:5 4 PM EDT Narrative 01/22/2025 4:26 [place] [address] Respiratory Report Signed Patient: JUANA ALTMAN MR#: [id number] : 1965 Acct:[id number] Age/Sex: 59 / F ADM Date: 01/22/25 Loc: CARD Attending Dr: Sam Parks D.O. Ordering Physician: Sam Parks D.O. Date of Service: 01/22/25 Procedure(s): RT pulmonary function test Accession Number(s): [id number] cc: [facility] Test Date: 2025-01-22 Pat Name: JUANA ALTMAN Department: Room: - Gender: Female Electrochemist: Ashwin Treviño RRT : 1965 Requested By: Sam Parks Order Number: [id number] Reading MD: Sam Parks Interpretive Statements Pulmonary function testing was completed according to ATS criteria. Findings were considered accurate and reproducible. No bronchodilator was administered due to normal spirometric values. Spirometry: -FEV1/FVC: Normal @ 87% -FEV1: Normal @ 100% -FVC: Normal @ 89% Lung volumes by plethysmography: -RV: Normal @ 93% -TLC: Normal @ 99% Diffusion capacity: -DLCO: Very mild reduction @ 79% when corrected for Hb 13.9g/dL Flow-volume loop: -Normal shape Flow-pressure loop: ???Normal pattern Impressions: -Normal spirometry and lung volumes with an isolated very mild reduction in DLCO. This pattern can be seen in, but not restricted to, cardiopulmonary vascular disorders, early interstitial lung disease, and early emphysema. Clinical correlation required. Electronically Signed On 01-22-2025 16:26:42 EDT by Sam Parks Dictated By: Sam Parks D.O. Signed By: 01/22/25 1626 DD/ 1254 TD/TT: Cat Dog Or Other Pet Groomer: Procedure Note Radiology, Radiologist, MD - 01/23/2025 [place] [address] Respiratory Report Signed Patient: JUANA ALTMANMR#: [id number] : 1965Acct:[id number] Age/Sex: 59 / FADM Date: 01/22/25 Loc: CARD Attending Dr: Sam Parks D.O. Ordering Physician: Sam Parks D.O. Date of Service: 01/22/25 Procedure(s): RT pulmonary function test Accession Number(s): [id number] cc: The [facility] Test Date: 2025-01-22 Pat Name: JUANA ALTMAN Department: Room: - Gender: Female Electrochemist: Ashwin Treviño RRT : 1965 Requested By: Sam Parks Order Number: [id number] Reading MD: Sam Parks Interpretive Statements Pulmonary function testing was completed according to ATS criteria.Findings were considered accurate and reproducible. No bronchodilator wasadministered due to normal spirometric values. Spirometry: -FEV1/FVC: Normal @ 87% -FEV1: Normal @ 100% -FVC: Normal @ 89% Lung volumes by plethysmography: -RV: Normal @ 93% -TLC: Normal @ 99% Diffusion capacity: -DLCO: Very mild reduction @ 79% when corrected for Hb 13.9g/dL Flow-volume loop: -Normal shape Flow-pressure loop: ???Normal pattern Impressions: -Normal spirometry and lung volumes with an isolated very mild reductionin DLCO. This pattern can be seen in, but not restricted to, cardiopulmonary vascular disorders, early interstitial lung disease, and early emphysema. Clinical correlation required. Electronically Signed On 01-22-2025 16:26:42 EDT by Sam Parks Dictated By: Sam Parks D.O. Signed By:01/22/25 4306 DD/ 1254 TD/TT: Cat Dog Or Other Pet Groomer: us Generic External Data Provider [facility] Final Result documented in this encounter Visit Diagnoses Not on filedocumented in this encounter Care Teams Nozzle Cement Sprayer Helper Relationship Specialty Start Date End Date Linus Jeffries DO [address] [place] [id number] PCP - General Family Medicine 12/27/22 documented as of this encounter
--- OUTSIDE RECORDS SUMMARY | 2025-01-29 12:37 | XMS_ITS | Patient Health Record ---
Author Organization The [facility] [place] Address [address] [place] [address] Care Team Providers Care Learning Center Instructor Name Role Phone Linus Jeffries DO Primary Care Provider Jorge Del Toro Unavailable [phone] Allergies Allergen (clinical drug ingredient) Drug/Non Drug Allergy documented on EMR Reaction Allergy Type Onset Date Status Bee Sting (uncoded) Swelling Allergy Active meperidine Demerol nausea and vomiting Drug Allergy Active Substance with sulfonamide structure and antibacterial mechanism of action (substance) Sulfa Antibiotics rash Drug Allergy Active Results Component Value Reference Range Notes CT chest high res Reviewed date:01/22/2025 03:46:27 PM Interpretation: Performing Lab: Notes/Report: Source Facility: [place] [address] CT Scan Report Signed Patient: MARGIE ALTMAN MR#: [id number] : 1965 Acct:[id number] Age/Sex: 59 / F ADM Date: 01/22/25 Loc: CARD Attending Dr: Jorge Cohen D.O. Ordering Physician: Jorge Cohen D.O. Date of Service: 01/22/25 Procedure(s): CT chest high res Accession Number(s): [id number] cc: Anurag JEFFRIES [place] [address] Patient Name: MARGIE ALTMAN MRN: [id number] date: 1965 Sex: F Assigned Patient Location: CARD Current Patient Location: CARD Accession/Order Number: [id number] Exam Date: 01/22/2025 15:23 Report Date: 01/22/2025 15:31 At the request of: JORGE COHEN DO Procedure: CT chest high res CT Chest high resolution without contrast TECHNIQUE: Axial imaging with 2-D reconstruction. Prone and supine positioningThe CT exam was performed using one or more the following dose reduction techniques: Automated exposure control, adjustment of the MA and/or Kv according to patient size, or use of the iterative reconstruction technique. History: Chronic cough and wheezing COMPARISON: None THYROID: Unremarkable TRACHEA AND BRONCHI: Patent trachea.Mild central bronchial wall thickening. ESOPHAGUS: Unremarkable. HEART: Within normal limits PERICARDIAL EFFUSION: None CORONARY ARTERY CALCIFICATION: None MEDIASTINUM: No adenopathy. No pneumoperitoneum. No mediastinal hematoma. PULMONARY TAMELA: No hilar mass or adenopathy is seen. THORACIC AORTA Unremarkable LUNG NODULE None LUNGS: Mild atelectasis in prone position. Otherwise no acute interstitial lung findings. PLEURAL EFFUSION: None PNEUMOTHORAX: No pneumothorax seen. CHEST WALL: No abnormality AXILLA:Unremarkable BONY STRUCTURES Intact UPPER ABDOMEN: Images of the upper abdomen are noncontributory. CT/CT chest high res IMPRESSION: Mild bronchial wall thickening. No acute interstitial lung disease. Impression dictated by: Timothy Mathew M.D. 01/22/2025 3:31 PM Dictation Location: [place] [address] Electronically authenticated by: [id number] Y Date: 01/22/2025 15:31 Dictated By: Timothy Mathew D.O. Signed By: 01/22/25 1534 DD/ 1531 TD/TT: City Mail Carrier: [place] [address] CT Scan Report Signed Patient: MARGIE ALTMAN MR#: [id number] : 1965 Acct:[id number] Age/Sex: 59 / F ADM Date: 01/22/25 Loc: CARD Attending Dr: Jorge Cohen D.O. Ordering Physician: Jorge Cohen D.O. Date of Service: 01/22/25 Procedure(s): CT emeka st high res Accession Number(s): [id number] cc: Anurag JEFFRIES [place] [id number] Patient Name: MARGIE ALTMAN MRN: [id number] date: 1965 Sex: F Assigned Patient Location: CARD Current Patient Loca tion: CARD Accession/Order Tyler er: [id number] Exam Date: 01/22/2025 15:23 Report Date: 01/22/2025 15:31 At the request of: JORGE COHEN DO Procedure: CT chest high res CT Chest high resolu tion without contrast TECHNIQUE: Axial nella ging with 2-D reconstruction. Prone and supine positioningThe CT ex am was performed using one or more the following dose reduction techniques : Automated exposure control, adjustment of the MA and/or Kv according to nga ent size, or use of the iterative reconstruction technique. History: Chronic cou gh and wheezing COMPARISON: None THYROID: Unremarkable TRACHEA AND BRONCHI: Patent trachea.Mild central bronchial wall thickening. ESOPHAGUS: Unremarkable. HEART: Within normal limits PERICARDIAL EFFUSION : None CORONARY ARTERY CALCIFICATION: None MEDIASTINUM: No adenopathy. No pneumoperitoneum. No mediastinal hematoma. PULMONARY TAMELA: No h ilar mass or adenopathy is seen. THORACIC AORTA Unremarkable LUNG NODULE None LUNGS: Mild atelecta sis in prone position. Otherwise no acute interstitial lung findings. PLEURAL EFFUSION: None PNEUMOTHORAX: No pneumothorax seen. CHEST WALL: No abnormality AXILLA:Unremarkable BONY STRUCTURES Intact UPPER ABDOMEN: Image s of the upper abdomen are noncontributory. C T/CT chest high res IMPRESSION: Mild bronchial wall thickening. No acute interstitial lung disease. Impression dictated by: Timothy Mathew M.D. 01/22/2025 3:31 PM Dictation Location: [place] [address] Electronically authenticated by: [id number] Y Date: 01/22/2025 15:31 Dictated By: Jovany Mathew D.O. Signed By: 01/22/25 1534 DD/ 1531 TD/TT: City Mail Carrier: CT Chest High Resolution Reviewed date:01/22/2025 03:39:54 PM Interpretation: Performing Lab: Notes/Report: RT pulmonary function test Reviewed date:01/22/2025 04:54:48 PM Interpretation: Performing Lab: Notes/Report: Source Facility: [address] [address] [place] [address] Respiratory Report Signed Patient: MARGIE ALTMAN MR#: [id number] : 1965 Acct:[id number] Age/Sex: 59 / F ADM Date: 01/22/25 Loc: CARD Attending Dr: Jorge Cohen D.O. Ordering Physician: Jorge Cohen D.O. Date of Service: 01/22/25 Procedure(s): RT pulmonary function test Accession Number(s): [id number] cc: [facility] Test Date: 2025-01-22 Pat Name: MARGIE ALTMAN Department: Room: - Gender: Female Cad Specialist: Ashwin Treviño RRT : 1965 Requested By: Jorge Cohen Order Number: [id number] Reading MD: Jorge Cohen Interpretive Statements Pulmonary function testing was completed [...] Electronically Signed On 01-22-2025 16:26:42 EDT by Jorge Cohen Dictated By: Jorge Cohen D.O. Signed By: 01/22/25 1626 DD/ 1254 TD/TT: City Mail Carrier: [place] [address] Respiratory Report Signed Patient: MARGIE ALTMAN MR#: [id number] : 1965 Acct:[id number] Age/Sex: 59 / F ADM Date: 01/22/25 Loc: CARD Attending Dr: Jorge Cohen D.O. Ordering Physician: Jorge Cohen D.O. Date of Service: 01/22/25 Procedure(s): RT pulmonary function test Accession Number(s): [id number] cc: [facility] Test Date: 2025-01-22 Pat Name: MARGIE Meredith Department: 84 Room: - Gender: Female Cad Specialist: Ashwin Treviño RRT : 1965 Requested By: Jorge Cohen Order Number: [id number] Reading MD: Jorge Cohen Interpretive Statements Pulmonary function testing was completed according to ATS criteria. Findings were considered accu rate and reproducible. No bronchodilator was administered due to normal spirom etric values. Spirometry: -FEV1/FVC: Normal @ 87% -FEV1: Normal @ 100% -FVC: Normal @ 89% Lung volumes by plethysmography: -RV: Normal @ 93% -TLC: Normal @ 99% Diffusion capacity: -DLCO: Very mild reduction @ 79% when corrected for Hb 13.9g/dL Flow-volume loop: -Normal shape Flow-pressure loop: ???Normal pattern Impressions: -Normal spirometry a nd lung volumes with an isolated very mild reduction in DLCO. This pattern c an be seen in, but not restricted to, cardiopulmonary vascular disorders, early interstitial lung disease, and early emphysema. Clinical correlation required. Electronically Ludmila d On 01-22-2025 16:26:42 EDT by Jorge Cohen Dictated By: [place]iki Cohen D.O. Signed By: 01/22/25 1626 DD/ 1254 TD/TT: City Mail Carrier: HEMOGLOBIN Reviewed date:01/22/2025 02:34:01 PM Interpretation: Performing Lab: Notes/Report: [facility] , Hemoglobin 13.9 12.0-16.0 g/dL Performing Lab: see note ML - [facility] Reason For Referral No Information Medications Medication [...] Problem Status W/U Status Risk Notes Problem Hyperlipidaemia (13262770) HLD (hyperlipidem ia) (E78.5) Active confirmed Problem migraine (disorder) (40529985) Migraines (G43.909) Active confirmed Vital Signs Heart Rate 73 /min 12/18/2024 Temperature 97.0 degrees Fahrenheit 12/18/2024 Respiratory Rate 18 /min 12/18/2024 Blood pressure diastolic 87 mm Hg 12/18/2024 Oximetry 98 % 12/18/2024 Height 62 in 12/18/2024 Blood pressure systolic 140 mm Hg 12/18/2024 Weight 226.4 lbs 12/18/2024 BMI 41.4 kg/m2 12/18/2024 Procedures Procedure Date Ordered Date Performed Result Body Sit e Echocardiogram 2D M Mode w/ Doppler (measure RVSP) 12/18/2024 N/A Spirometry (Pre Only) - Performed 12/18/2024 12/18/2024 N/ A PFT (74716, 38101, 75295) 12/18/2024 01/22/2025 N/A Encounters Encounter Location Date Provider Diagnosis Pulmonary Medicine [place] [address] [place] [address] 12/02/2024 [facility] [place] [address] [place] [address] 01/08/2025 [facility]monary Medicine [place] [address] [place] [address] 12/18/2024 Jorge Samsa Shortness of breath R06.02 ; Chronic cough [...] Treatment Pending Test Test Name Order Date Echocardiogram 2D M Mode w/ Doppler (manuela sure RVSP) 12/18/2024 Next Appt Details Provider Name:Jorge Cohen, 01/29/2025 03:40:00 PM, [address] [place], [address], Insurance Providers Payer Name Payer Address Payer Phone Subscriber Number Group Number Insured Name Patient Relationship to Insured Coverage Start Date Coverage End Date [facility] [address] [place], [place] [id number] Margie Altman Self - patient is the insured Medical (General) History Medical History History ICD Code Migraines G43.909 HLD (hyperlipidemia) E78.5 Surgical History Surgery Date(Month/Year) pilonidal cyst excision oopherectomy-left diagnostic laparoscopy oral surgery
--- OUTSIDE RECORDS SUMMARY | 2025-01-29 12:37 | XMS_ITS | Encounter Summary ---
Author Organization [facility] Address [address] [place] [address] Care Team Providers Care Disaster Recovery Coordinator Name Role Phone Linus Jeffries DO Primary Care Provider [phone] Carl Milligan PA Unavailable Encounter Details Date Type Department Care Team (Late st Contact Info) Description 06/07/2023 Abstract [facility] [address] [place] [id number] Carl Milligan PA [address] [place] [address] Social History Tobacco Use Types Packs/Day Years [...] on filedocumented in this encounter Care Teams Disaster Recovery Coordinator Relationship Specialty Start Date End Date Linus Jeffries DO [address] [place] [address] PCP - General Family Medicine 12/27/22 Carl Milligan PA [address] [place] [address] PCP - Medical [place] [employer] 08/22/21 11/07/24 documented as of this encounter
--- OUTSIDE RECORDS SUMMARY | 2025-01-29 12:37 | XMS_ITS | Encounter Summary ---
Author Organization [facility] Address [address] [place] [address] Care Team Providers Care Logging Crew Supervisor Name Role Phone Linus Jeffries DO Primary Care Provider [phone] Encounter Details Date Type Department Care Team [...] often do you attend chur ch or hinduism services? 1 to 4 times per year [...] Recorded Patient Health Questionnaire-2 Score 0 01/08/2025 [facility] - Occupational [...] any time in the past 12 m [facility], were you homeless or living in [...] Procedure Name Priority Date/Time Associated Diagnosis Comments ALL HEMOGLOBIN Routine 01/22/2025 12:49 PM EDT documented in this encounter Results * ALL HEMOGLOBIN (01/22/2025 12:49 PM EDT) [facility] HGB 13.9 12.0 - 16.0 g/dL [facility] 01/22/2025 12:4 9 PM EDT 01/22/2025 12:50 PM EDT Narrative [facility]IN[facility] - 01/22/2025 12:54 PM EDT us Generic External Data Provider [facility] documented in this encounter Visit Diagnoses Not on filedocumented in this encounter Care Teams Logging Crew Supervisor Relationship Specialty Start Date End Date Linus Jeffries DO [address] [place] [address] PCP - General Family Medicine 12/27/22 documented as of this encounter
--- OUTSIDE RECORDS SUMMARY | 2025-01-29 12:37 | XMS_ITS | Encounter Summary ---
Author Organization [facility] Address [address] [place] [address] Care Team Providers Care Vice Admiral Name Role Phone Linus Jeffries DO Primary Care Provider [phone] Encounter Details Date Type Department Care Team [...] often do you attend chur ch or cheondoism services? 1 to 4 times per year 02/27/2024 Do you belong to any clubs o r organizations such as sabianism groups, unions, fraternal or athletic groups, or [...] Recorded Patient Health Questionnaire-2 Score 0 01/08/2025 [facility] Occupat ional Health - Occupational [...] in the past 12 m [facility], were you homeless or living in a longterm (including now)? No 02/27/2024 Comments No Sex and Gender Information Value Date Recorded Sex Assigned at Not on file Legal Sex Female 6:58 PM EDT Gender Identity Not on file Sexual Orientation Not on file documented as of this encounter Plan of Treatment Not on file documented as of this encounter Procedures Procedure Name Priority Date/Time Associated Diagnosis Comments CT CHEST HIGH RESOLUTION 01/22/2025 3:31 PM EDT documented in this encounter Results * CT CHEST HIGH RESOLUTION (01/22/2025 3:31 PM EDT) Anatomical Region Laterality Modality Radiographic Maria C ging 01/22/2025 3:31 PM EDT Narrative 01/22/2025 3:34 [place] [address] CT Scan Report Signed Patient: JUANA ALTMAN MR#: [id number] : 1965 Acct:[id number] Age/Sex: 59 / F ADM Date: 01/22/25 Loc: CARD Attending Dr: Jorge Cohen D.O. Ordering Physician: Jorge Cohen D.O. Date of Service: 01/22/25 Procedure(s): CT chest high res Accession Number(s): [id number] cc: Anurag JEFFRIES [place] [id number] Patient Name: JUANA ALTMAN MRN: [id number] date: 1965 Sex: F Assigned Patient Location: CARD Current Patient Location: CARD Accession/Order Number: [id number] Exam Date: 01/22/2025 15:23 Report Date: 01/22/2025 [...] Mathew M.D. 01/22/2025 3:31 PM Dictation Location: [place] [address] Electronically authenticated by: [id number] Y Date: 01/22/2025 15:31 Dictated By: Timothy Mathew D.O. Signed By: 01/22/25 1534 DD/ 1531 TD/TT: Radiographer Cardiac Catheterization: Procedure Note Radiology, Radiologist, MD - 01/23/2025 [place] [address] CT Scan Report Signed Patient: JUANA ALTMANMR#: [id number] : 1965Acct:[id number] Age/Sex: 59 / FADM Date: 01/22/25 Loc: CARD Attending Dr: Jorge Cohen D.O. Ordering Physician: Jorge Cohen D.O. Date of Service: 01/22/25 Procedure(s): CT chest high res Accession Number(s): [id number] cc: Anurag JEFFRIES [address] [address] Patient Name: JUAAN ALTMAN MRN: [id number] date: 1965 Sex: F Assigned Patient Location: CARD Current Patient Location: CARD Accession/Order Number: [id number] Exam Date: 01/22/2025 15:23 Report Date: 01/22/2025 15:31 At the request of: JORGE COHEN DO Procedure: CT chest high res CT Chest high resolution without contrast TECHNIQUE: Axial imaging with 2-D reconstruction. Prone and supine positioningThe CT exam was performed using one or more the following dose reduction techniques: Automated exposure control, adjustment of the MAand/or Kv according to patient size, or use of the iterative reconstruction technique. History: Chronic cough and wheezing COMPARISON: None THYROID: Unremarkable TRACHEA AND BRONCHI: Patent trachea.Mild central bronchial wallthickening. ESOPHAGUS: Unremarkable. HEART: Within normal limits PERICARDIAL EFFUSION: None CORONARY ARTERY CALCIFICATION: None MEDIASTINUM: No adenopathy. No pneumoperitoneum. No mediastinalhematoma. PULMONARY TAMELA: No hilar mass or adenopathy is seen. THORACIC AORTA Unremarkable LUNG NODULE None LUNGS: Mild atelectasis in prone position. Otherwise no acuteinterstitial lung findings. PLEURAL EFFUSION: None PNEUMOTHORAX: No pneumothorax seen. CHEST WALL: No abnormality AXILLA:Unremarkable BONY STRUCTURES Intact UPPER ABDOMEN: Images of the upper abdomen are noncontributory. CT/CT chest high res IMPRESSION: Mild bronchial wall thickening. No acute interstitial lung disease. Impression dictated by: Timothy Mathew M.D. 01/22/2025 3:31 PM Dictation Location: [place] [address] Electronically authenticated by: [id number] Y Date: 5:31 Dictated By: Timothy Mathew D.O. Signed By:01/22/25 1534 DD/ 1531 TD/TT: Radiographer Cardiac Catheterization: Generic External Data Provider IMG XR PROCEDURES Final Result documented in this encounter Visit Diagnoses Not on filedocumented in this encounter Care Teams Vice Admiral Relationship Specialty Start Date End Date Linus Jeffries DO [address] [place] [address] PCP - General Family Medicine 12/27/22 documented as of this encounter
--- OUTSIDE RECORDS SUMMARY | 2025-01-29 12:37 | XMS_ITS | Encounter Summary ---
Author Organization [facility] Address [address] [place] [address] Care Team Providers Care Outpatient Psychiatrist Name Role Phone Linus Jeffries DO Primary Care Provider [phone] Carl Milligan PA Unavailable Encounter Details Date Type Department Care Team (Late st Contact Info) Description 02/01/2024 Abstract [facility] [address] [facility] [address] [place] [address] Linus Jeffries DO [address] [facility] [address] [place] [address] Social History Tobacco Use Types Packs/Day Years [...] on filedocumented in this encounter Care Teams Outpatient Psychiatrist Relationship Specialty Start Date End Date Linus Jeffries DO [address] [place] [address] PCP - General Family Medicine 12/27/22 Carl Milligan, MOLLY [address] [place] [address] PCP - Medical [place] [employer] 08/22/21 11/07/24 documented as of this encounter
--- OUTSIDE RECORDS SUMMARY | 2025-01-29 12:38 | XMS_ITS | Clinical Summary ---
Author Organization [facility] Address [address] [place] [address] Care Team Providers Care House Sitter Name Role Phone Linus Jeffries DO Primary Care Provider [phone] Allergies Active Allergy Reactions Criticality Noted Date [...] Encounters Date Type Department Care Team Description 01/22/2025 Clinisync Result Encounter [facility] External Department Unsolicited Provider, Generic External Data 01/22/2025 Clinisync Result Encounter [facility] External Department Unsolicited Provider, Generic External Data 01/22/2025 Abstract [facility] [address] [place] [address] Linus Jeffries DO 01/22/2025 Clinisync Result Encounter [facility] External Department Unsolicited Provider, Generic External Data 01/14/2025 Refill [facility] [address] [place] [address] Linus Jeffries DO Other migraine without status migrainosus, not intractable 01/09/2025 Results Follow-Up [facility] [address] [facility] [address] [place] [address] Scottie JustinTY 01/08/2025 3:30 PM EDT Ancillary Procedure [facility] XRAY [address] [facility] [address] [place] [address] Persistent cough 01/08/2025 3:00 PM EDT Office Visit [facility] [address] [facility] [address] [place] [address] Linus Jeffries DO Persistent cough (Primary Dx); Morbid (severe) obesity due to excess calories (CMS/HCC); Hyperlipidemia, unspecified (CMS/HCC); Mixed hyperlipidemia (CMS/HCC); Other fatigue; Bilateral lower extremity edema; Dyspnea on exertion; Elevated blood sugar 01/08/2025 Bamboo flowsheet [facility] [address] [facility] [address] [place] [address] Linus Jeffries DO 01/08/2025 Travel 01/07/2025 Travel [...] Mother Latonya [place] Alcohol abuse Paternal Grandmother [place] Diabetes Paternal Grandmother Masha Relation Name Status Comments Father Satya [place] Alive Maternal Grandfather Naun - leukemia Maternal Grandmother [place] - colon ca Mother Latonya [place] Alive Paternal Grandmother Vermillion Social History Tobacco Use Types Packs/Day Years [...] How often do you attend chur or quaker services? 1 to 4 times per year 02/27/2024 Do you belong to any clubs o r organizations such as sabianist groups, unions, fraternal or athletic groups, or [...] Recorded Patient Health Questionnaire-2 Score 0 01/08/2025 [facility] Occupat ional Health - [...] time in the past [address] [facility], were you homeless or living in a usp (including now)? No 02/27/2024 Comments No Sex [...] 1965 Pap Smear 1985 Mammogram 04/04/2025 04/04/2024, 12/0 02/2022, 05/07/2021, Additional history exists Influenza Vaccine (Season Ended) 2025 05/21/20 20, 05/21/2015 Cervical Cancer Screening 03/17/2026 HPV/Cotest 03/17/2026 03/17/2021 Colonoscopy 03/29/2029 03/29/2019 Colorectal Cancer Screening 03/29/2029 Procedures Procedure Name Priority Date/Time Associated Diagnosis Comments CT CHEST HIGH RESOLUTION 01/22/2025 3:31 PM EDT RT PULMONARY FUNCTION TEST 01/22/2025 12:54 PM EDT ALL HEMOGLOBIN Routine 01/22/2025 12:49 PM EDT B-TYPE NATRIURETIC PEPTIDE Routine 01/09/2025 7:52 AM [...] THINPREP TIS PAP REFLEX HPV MRNA E6/E7 (41438) Routine 03/17/2021 COLONOSCOPY Routine 03/29/2019 12:00 PM EDT from Last 3 Months or Most Recently Relevant to Health Maintenance Results * CT CHEST HIGH RESOLUTION (01/22/2025 3:31 PM EDT) Anatomical Region Laterality Modality Radiographic Maria C ging 01/22/2025 3:31 PM EDT Narrative 01/22/2025 3:34 PM EDT [place] [id number] CT Scan Report Signed Patient: MARGIE ALTMAN MR#: [id number] : 1965 Acct:[id number] Age/Sex: 59 / F ADM Date: 01/22/25 Loc: CARD Attending Dr: Jorge Cohen D.O. Ordering Physician: Jorge Cohen D.O. Date of Service: 01/22/25 Procedure(s): CT chest high res Accession Number(s): [id number] cc: Anurag JEFFRIES [address] [address] Patient Name: MARGIE ALTMAN MRN: [id number] date: 1965 Sex: F Assigned Patient Location: CARD Current Patient Location: CARD Accession/Order Number: [id number] Exam Date: 01/22/2025 15:23 Report Date: 01/22/2025 15:31 At the request of: JORGE SAMSA DO Procedure: CT chest high res CT [...] Mathew M.D. 01/22/2025 3:31 PM Dictation Location: [place] [address] Electronically authenticated by: [id number] Y Date: 01/22/2025 15:31 Dictated By: Timothy Mathew D.O. Signed By: 01/22/25 1534 DD/ 1531 TD/TT: Labelling Machine Operator: Procedure Note Radiology, Radiologist, MD - 01/23/2025 [place] [address] CT Scan Report Signed Patient: MARGIE ALTMANMR#: [id number] : 1965Acct:[id number] Age/Sex: 59 / FADM Date: 01/22/25 Loc: CARD Attending Dr: Jorge Cohen D.O. Ordering Physician: Jorge Cohen D.O. Date of Service: 01/22/25 Procedure(s): CT chest high res Accession Number(s): [id number] cc: Anurag JEFFRIES [place] [address] Patient Name: MARGIE ALTMAN MRN: [id number] date: 1965 Sex: F Assigned Patient Location: CARD Current Patient Location: CARD Accession/Order Number: [id number] Exam Date: 01/22/2025 15:23 Report Date: 01/22/2025 [...] Mathew M.D. 01/22/2025 3:31 PM Dictation Location: [facility] Electronically authenticated by: [id number] Y Date: 5:31 Dictated By: Timothy Mathew D.O. Signed By:01/22/25 1534 DD/ 1531 TD/TT: Labelling Machine Operator: us Generic External Data Provider IMG XR PROCEDURES Final Result * RT PULMONARY FUNCTION TEST (01/22/2025 12:54 PM EDT) Anatomical Region Laterality Modality Other 01/22/2025 12:5 4 PM EDT Narrative 01/22/2025 4:26 PM EDT The [place] [id number] Respiratory Report Signed Patient: MARGIE ALTMAN MR#: [id number] : 1965 Acct:[id number] Age/Sex: 59 / F ADM Date: 01/22/25 Loc: CARD Attending Dr: Jorge Cohen D.O. Ordering Physician: Jorge Cohen D.O. Date of Service: 01/22/25 Procedure(s): RT pulmonary function test Accession Number(s): [id number] cc: The [facility] Test Date: 2025-01-22 Pat Name: MARGIE ALTMAN Department: Room: - Gender: Female Machine Finisher: Ashwin Treviño RRT : 1965 Requested By: Jorge Cohen Order Number: [id number] Reading MD: Jorge Cohen Interpretive Statements Pulmonary [...] Signed By: 01/22/25 1626 DD/ 1254 TD/TT: Labelling Machine Operator: Procedure Note Radiology, Radiologist, MD - 01/23/[address] [address] Respiratory Report Signed Patient: MARGIE ALTMANMR#: [id number] : 1965Acct:[id number] Age/Sex: 59 / FADM Date: 01/22/25 Loc: CARD Attending Dr: Jorge Cohen D.O. Ordering Physician: Jorge Cohen D.O. Date of Service: 01/22/25 Procedure(s): RT pulmonary function test Accession Number(s): [id number] cc: [facility] Test Date: 2025-01-22 Pat Name: MARGIE ALTMAN Department: Room: - Gender: Female Machine Finisher: Ashwin Treviño RRT : 1965 Requested By: Jorge Cohen Order Number: [id number] Reading MD: Jorge Cohen Interpretive Statements Pulmonary [...] Cohen Dictated By: Jorge Cohen D.O. Signed By:01/22/25 1626 DD/ 1254 TD/TT: Labelling Machine Operator: us Generic External Data Provider [facility] IMAGING Final Result * ALL HEMOGLOBIN (01/22/2025 12:49 PM EDT) [facility] HGB 13.9 12.0 - 16.0 g/dL [facility] 01/22/2025 12:4 9 PM EDT 01/22/2025 12:50 PM EDT Narrative CLINISYNC - 01/22/2025 12:54 PM EDT Generic External Data Provider CLINISYNC F inal Result [facility] * Sedimentation rate, automated (01/09/2025 7:52 AM EDT) Pathologist [facility] Sed Rate-Westergren 2 0 - 40 mm/hr [facility] Blood Venous blood specimen / Unknown 01/09/2025 7:52 AM EDT 01/09/2025 Narrative [facility] - 01/10/2025 11:07 AM EDT Performed at: 01 - [place] [id number] Dietetic Aide: Adalid Abreu PhD, Phone: [phone] Linus Jeffries DO LAB BLOOD ORDERABLES Final Re sult Performing Organization Address City/[facility] Co de Phone Number [facility] * D-dimer, quantitative (01/09/2025 7:52 AM EDT) [facility] D-DIMER, QUANTITATIVE <0.20 0.00 - 0.49 mg/L FEU [facility] Comment: According to the assay policy checker's published package insert, a normal (<0.50 mg/L FEU) D-dimer result in conjunction with a non-high clinical probability assessment, excludes deep vein thrombosis (DVT) and pulmonary embolism (PE) with high sensitivity. D-dimer values increase with age and this can make VTE exclusion of an older population difficult. To address this, the [employer], based on best available [...] 11:07 AM EDT Performed at: 01 - [facility] [id number] Dietetic Aide: Adalid Abreu PhD, Phone: [phone] us Linus Jeffries DO LAB BLOOD ORDERABLES Final Re sult [facility] * (ABNORMAL) CBC and differential (01/09/2025 7:52 AM EDT) [facility] WBC 8.9 3.4 - 10.8 x10E3/uL [...] - 01/10/2025 11:07 AM EDT Performed at: [address] [place] [id number] Dietetic Aide: Adalid Abreu PhD, Phone: [phone] Linus Jeffries DO LAB BLOOD ORDERABLES Final Re sult Performing Organization Address City/[facility]/ZIP Co de Phone Number [facility] * TSH (01/09/2025 7:52 AM EDT) TSH 2.180 0.450 - 4.500 uIU/mL [facility] Blood Venous blood specimen / Unknown 01/09/2025 7:52 AM EDT 01/09/2025 Narrative [facility] - 01/10/2025 11:07 AM EDT Performed at: [address] [id number] Dietetic Aide: Adalid Abreu PhD, Phone: [phone] Linus Jeffries DO LAB BLOOD ORDERABLES Final Re sult Performing Organization Address [facility] de Phone Number [facility] * B-type natriuretic peptide (01/09/2025 7:52 AM EDT) Pathologist [facility] B TYPE NATRIURETIC PEPTIDE (BNP) 17.7 0.0 - 100.0 pg/mL [facility] Comment:[employer] AD[employer]IA [employer] XP methodology Blood Venous blood specimen / Unknown 01/09/2025 7:52 AM EDT 01/09/2025 Narrative [facility] - 01/10/2025 11:07 AM EDT Performed at: [address] [place] [id number] Dietetic Aide: Adalid Abreu PhD, Phone: [phone] Linus Jeffries DO LAB BLOOD ORDERABLES Final Re sult Performing Organization Address City/[facility]/ZIP Co de Phone Number [facility] * (ABNORMAL) Hemoglobin A1c (01/09/2025 7:52 AM EDT) HgbA1C 5.9(H) 4.8 - 5.6 % [facility] Comment: Prediabetes: 5.7 - 6.4 Diabetes: >6.4 Glycemic control for adults with diabetes: <7.0 Blood Venous blood specimen / Unknown 01/09/2025 7:52 AM EDT 01/09/2025 Narrative [facility] - 01/10/2025 11:07 AM EDT Performed at: Lab[address] [id number] Dietetic Aide: Adalid Abreu PhD, Phone: [phone] Linus Jeffries DO LAB BLOOD ORDERABLES Final Re sult Performing Organization Address [facility] Co de Phone Number [facility] [...] - 01/10/2025 11:07 AM EDT Performed at: [address] [id number] Dietetic Aide: Adalid Abreu PhD, Phone: [phone] Linus Jeffries DO LAB BLOOD ORDERABLES Final Re sult Performing Organization Address City/[facility]/ZIP Co de Phone Number [facility] * (ABNORMAL) [...] 11:07 AM EDT Performed at: 01 - [address] [id number] Dietetic Aide: Adalid Abreu PhD, Phone: [phone] Linus Jeffries DO LAB BLOOD ORDERABLES Final [...] IS VERY IMPORTANT TO YOUR HEALTH. THE [employer] GUIDELINES RECOMMEND THAT WOMEN 40 [...] asymmetry, architectural distortion, or calcification Procedure Note Aelx Todd MD - 04/05/2024 EXAMINATION: BI MAMMOGRAM [...] IS VERY IMPORTANT TO YOUR HEALTH. THE [employer] SOCIETYGUIDELINES RECOMMEND THAT WOMEN 40 YEARS [...] THINPREP TIS PAP REFLEX HPV MRNA E6/E7 (78846) (03/17/2021) CLINICAL INFORMATION: None given [facility] [...] Reference Range: ZL, CT(ASCP) CT screening location: [place] [address]. [address]: SEE COMMENT [facility] Comment: PEH, CT(ASCP) CT screening location: [place] [address]. COMMENT SEE COMMENT [facility] EXTERNAL [...] with historic and current clinical information. 03/17/2021 Suraj Brown DO [facility] Final Result [facility] * Colonoscopy (03/29/2019 12:00 PM EDT) Anatomical Region Laterality Modality Endoscopy 03/29/2019 12:0 0 PM EDT Narrative 03/29/2019 12:00 PM EDT PERFORMED AT [facility] LOCATION:[id number] [facility] Procedure Note CONVERSION, GENERIC - 01/04/2023 PERFORMED AT [facility] LOCATION:[id number] [facility] Linus Jeffries DO ENDOSCOPY PROCEDURE ORDERABLE S Final Result from Last 3 Months or Most Recently Relevant to Health Maintenance Insurance * Guarantor: Margie Altman Account Type Relation to Patient Date of Phone Billing Address Personal/Family Self 1965 [id number] (Work) [address] [place] [address] [employer] Care Teams House Sitter Relationship Specialty Start Date End Date Linus Jeffries DO [address] [place] [address] PCP - General Family Medicine 12/27/22
--- NOTE | 2025-01-29 12:58 | CA_ITS ---
Patient Name: JUANA ALTMAN MR#: [id number] : 1965 Exam Date: 01/29/2025 Ordering Doctor: DR. JORGE COHEN . ECHOCARDIOGRAM REPORT PROCEDURE: CA ECHO DOPPLER COMPLETE INDICATIONS: Shortness of breath, Lower extremity edema COMPARISON: None. DESCRIPTION: COMPLETE ECHOCARDIOGRAM Real-time transthoracic echocardiography with 2D, M-mode, spectral and color flow Doppler performed. QUALITY: Technical quality was good. LEFT VENTRICLE: Normal chamber size. Normal left ventricular wall thickness. Global left ventricular systolic function is normal. LV EF: Estimated left ventricular ejection fraction is 65-70%. DIASTOLIC: Normal diastolic function. ATRIAL SEPTUM: LEFT ATRIUM: Normal chamber size. RIGHT ATRIUM: Normal chamber size. RIGHT VENTRICLE: Normal chamber size. Normal right ventricular systolic function. TRICUSPID VALVE: Normal mobility and thickness. No stenosis with trivial regurgitation. No evidence of pulmonary hypertension. RVSP 34 mmHg MITRAL VALVE: Normal mobility and thickness. No evidence of mitral valve stenosis. There is no mitral annular calcification. Trivial mitral regurgitation. AORTIC VALVE: Normal trileaflet appearance. Thickened aortic valve. Normal leaflet mobility. No evidence of aortic valve stenosis. No aortic regurgitation. AORTIC ROOT: Normal diameter and appearance, measuring 3.4 cm. The ascending aorta is normal in size, measuring 2.8 cm. PULMONIC VALVE: Normal thickness and mobility. Normal with Trivial regurgitation. PERICARDIUM: No evidence of pericardial effusion. IVC: Collapses with inspiration. Normal size. PLEURA: CONCLUSION: 1. Normal ventricular size and systolic function. Estimated LVEF is 65 to 70%. 2. No significant valvular dysfunction. 3. Normal diastolic function. 4. Normal right-sided pressures. Adult Echocardiography Procedure Report Left Ventricle LVEDD (3.7 - 5.6 cm): 3.76 cm LVESD (2.2 - 4.0 cm): 2.45 cm LVIVS thickness (0.6 - 1.2 cm): 0.94 cm LVPW thickness (0.5 - 1.0 cm): 1.02 cm e': 0.10 m/s E - e': 10.56 LVOT Max Gradient: 3.98 mm[Hg] LVOT Area (cm2): 1.00 m/s Peak Velocity (LVOT): 1.00 m/s Mean Velocity (LVOT): 0.68 m/s LVOT Diameter 1.86 cm Left Ventricular Ejection Fraction: 65-70 % Left Atrium LA Volume Index (2D A2C): 28.08 ml/m2 Left Atrium Systolic Dimension: 3.25 cm Mitral Valve MV E to A Ratio: 1.41 Mitral Valve A-Wave Peak Velocity: 0.75 m/s Mitral Valve E-Wave Peak Velocity: 1.06 m/s Right Ventricle RV Internal Diastolic Dimension: 3.38 cm Aorta AO Root Diam: 3.44 cm Ascending Ao Diam: 2.78 cm Aortic Valve AoV Area (Peak Joaquin): 2.28 cm2, 2.28 cm2 AoV Area (VTI): 2.31 cm2, 2.31 cm2 Peak Velocity(Antegrade Flow): 1.19 m/s Peak Gradient(Antegrade Flow): 5.70 mm[Hg] Mean Velocity(Antegrade Flow): 0.79 m/s Mean Gradient(Antegrade Flow): 2.87 mm[Hg] Velocity Time Integral: 30.86 cm Tricuspid Valve Peak Velocity (Regurgitant Flow): 1.99 m/s, 2.45 m/s, 2.47 m/s, 2.77 m/s Pulmonic Valve Peak Velocity: 0.82 m/s Peak Gradient: 2.67 mm[Hg] Right Atrium Right Atrium Systolic Pressure: 28.35 ml, 28.35 ml Dictated by: Linus Souza M.D. on 01/29/2025 at 17:49 Approved by: Linus Souza M.D. on 01/29/2025 at 17:53
== END 2025-01-29 12:36 | disposition home or self-care (01) ==
LOC: CARD 12:35
PROVIDERS: PCP Family Medicine; Visit Provider Internal Medicine
DX: R06.02 Shortness of breath (principal); R05.3 Chronic cough; R60.0 Localized edema
CPT/HCPCS: 93306